=== PATIENT | male | born 1935 | race Caucasian/White ===

== ENCOUNTER 2016-07-10 11:18 | Inpatient (IN) | payer MEDICARE, BC ==
--- NOTE | 2016-07-10 11:55 | ED ---
General Adult HPI - General Chief complaint: Nausea/Vomiting/Diarrhea Stated complaint: fever Time Seen by Provider: 07/10/16 11:41 Source: patient Mode of arrival: ambulatory Limitations: no limitations - History of Present Illness Initial comments: 80-year-old male with history of cirrhosis presenting for abdominal pain. Patient states that he had subjective fevers and chills all night. He also had some abdominal pain that time. He states the abdominal pain has improved somewhat and he is feeling somewhat better however he has had worsening abdominal distention with what he believes is fluid over the past few days. He does state that he had a history of liver stones last year at which time he had a stent placed. He states the stent is still in place but he is starting to have symptoms similar to what he had when he had a liver stones in the past. He is also complaining of some urinary difficulty. He also feels some mild shortness of breath, especially when he gets up and walks around. He denies any chest pain. - Related Data Home Medications Medication Instructions Recorded Confirmed Clopidogrel [Plavix] 75 mg PO DAILY 05/07/14 07/10/16 sitaGLIPtin PHOSPHATE [Januvia] 100 mg PO DAILY 05/07/14 07/10/16 Ferrous Sulfate [Iron (65 MG 325 mg PO BID 04/02/15 07/10/16 Elemental)] Multivitamins, Thera [Multivitamin] 1 tab PO DAILY 11/05/15 07/10/16 metFORMIN HCL [Metformin HCl ER] 500 mg PO BID 11/05/15 07/10/16 Aspirin EC [Ecotrin Low Dose] 81 mg PO DAILY 12/29/15 07/10/16 Furosemide 40 mg PO BID 03/19/16 07/10/16 Isosorbide Mononitrate ER [Imdur] 60 mg PO DAILY 07/10/16 07/10/16 Omeprazole [PriLOSEC] 20 mg PO DAILY 07/10/16 07/10/16 Potassium Chloride ER [K-Dur 10] 10 meq PO BID 07/10/16 07/10/16 Previous Rx's Medication Instructions Recorded Nitroglycerin Sl Tabs [Nitrostat] 0.4 mg SUBLINGUAL Q5M PRN #25 tab 03/23/16 Allergies Allergy/AdvReac Type Severity Reaction Status Date / Time ursodiol Allergy Unknown Verified 07/10/16 12:25 spironolactone AdvReac INCREASED Verified 07/10/16 12:25 [From Aldactone] ANGINA PAIN Review of Systems ROS Statement: Those systems with pertinent positive or pertinent negative responses have been documented in the HPI. Constitutional: Positive subjective fevers and chills. No change in appetite. No unexpected weight loss. Eyes: No visual changes. No eye pain. No sensitivity to light. HENT: No sinus pressure. No ear pain. No hearing changes. No epistaxis. No sore throat. Respiratory: No cough. Positive SOB. No wheezing. Cardiovascular: No chest pain. No palpitations. Positive lower extremity edema. Abdomen: Positive abdominal pain. Positive nausea. No vomiting. No diarrhea. Positive abdominal distention. Genitourinary: No dysuria. No hematuria. No difficulty urinating. No flank pain. Musculoskeletal: No injury. No back pain. No myalgias. Skin: No rash. No lesions. No lacerations. Neuro: No gross strength deficits. No LOC. No seizures. No headache. Psych: No confusion. No memory changes. No anxiety/depression. ROS Other: All systems not noted in ROS Statement are negative. 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, ascites, GIB- rectal bleed (pt vague as to cause or what was done) skin cancer, lower extremity edema, cardiac murmur, colon polyps liver stones Last Myocardial Infarction Date:: not sure History of Any Multi-Drug Resistant Organisms: None Reported Past Surgical History: Cholecystectomy, Coronary Bypass/CABG, Heart Catheterization Additional Past Surgical History / Comment(s): CHRIS, heart cath 1999,heart cath 04-16-15 tx medically, katelynn corneal transplants, rt carotic endarterectomy, skin lesion, removed skin ca(forehead and rt forearm), temporal artery bx-neg, Biliarty stones with ERCP. EGD/colonoscopy 05/2014 Past Anesthesia/Blood Transfusion Reactions: No Reported Reaction Additional Past Anesthesia/Blood Transfusion Reaction / Comment(s): per old hx transfusion 1999-no reaction Past Psychological History: No Psychological Hx Reported Additional Psychological History / Comment(s): but has a significant other for many years. Reformed tobacco and alcohol user. experience the [place] where he was through the [place] and [facility] no illnesses while he was in the service. No travel since then. No animal exposures. No injection drug use Smoking Status: Former smoker Past Alcohol Use History: None Reported Additional Past Alcohol Use History / Comment(s): quit smoking 1985, quit drinking 2007, smoked up to 4 PPD and for a 25 Past Drug Use History: None Reported - Past Family History Father Family Medical History: Myocardial Infarction (RI) Mother Family Medical History: Myocardial Infarction (RI) General Exam - General Exam Comments Initial Comments: General: Awake and Alert. No acute distress. Does not appear acutely ill. Eyes: NERIS, EOM intact. No nystagmus. Mild scleral icterus. HENT: Atraumatic, normocephalic. Mucous membranes moist. Trachea midline. Neck: The neck is supple, there is no tenderness or JVD. Cardiovascular: Regular rate and rhythm. No murmur, rub, or gallop is appreciated. Distal pulses intact. Respiratory: Lungs are clear to auscultation bilaterally. No wheezes, rales, rhonchi. No respiratory distress. Gastrointestinal: Soft, with mild diffuse tenderness. No rebound or guarding. Distended with fluid wave concerning for ascites. No CVA tenderness. Musculoskeletal: No tenderness. Normal ROM. No gross deformity. No strength deficits. Neurological: A&Ox3. CN II-XII grossly intact, There are no obvious motor or sensory deficits. Coordination appears grossly intact. Speech is normal. Skin: Skin is warm and dry and no rashes or lesions are noted. There is jaundice present. Psychiatric: Cooperative, appropriate mood & affect, normal judgment. Limitations: no limitations Course Vital Signs 07/10/16 07/10/16 07/10/16 11:20 14:20 15:10 Temperature 97.1 F L 98.0 F Pulse Rate 74 72 72 Pulse Rate [ Pulse Oximetery ] Respiratory 18 15 15 Rate Blood Pressure 124/60 100/52 98/54 Blood Pressure [Left Arm] O2 Sat by Pulse 100 95 98 Oximetry 07/10/16 16:09 Temperature 97.8 F Pulse Rate Pulse Rate [ 72 Pulse Oximetery ] Respiratory 18 Rate Blood Pressure Blood Pressure 129/60 [Left Arm] O2 Sat by Pulse 99 Oximetry EKG Findings - EKG Comments: EKG Findings:: 14:15. Normal sinus rhythm. Rate 73. ND 184. QRS 82. QT/QTc 398/438. Normal axis. Nonspecific ST and T-wave changes. Abnormal ECG. Similar prior EKG 03/19/16. Medical Decision Making - Medical Decision Making 80-year-old male with history of cirrhosis and prior biliary obstruction presenting for abdominal pain. Patient does not appear to be septic at this time. There is lower suspicion of SBP, will defer antibiotic coverage at this time. No significant abdominal tenderness or evidence of peritonitis. Lab work showing mild drop in hemoglobin from recent value per states it was 10.4 2 weeks ago. Platelets low consistent with thrombocytopenia from end- stage liver disease. LFTs elevated concerning for biliary obstructive process. Lactate negative. BNP significantly elevated. Chest x-ray with no acute process. Ultrasound does show stent in place although there is CBD dilation around this. Updated patient and on results and imaging. Discussed plan for admission. They're agreeable to this. Called and spoke with Dr. Fontaine, he is agreeable with plan for admission. Requests consultation to Dr. Daiz, GI. He also requests consult IR for paracentesis. I did call and discuss with Dr. Diamond covering for Dr. Diaz and they state that they can manage this patient here at [facility]. Patient will be admitted. - Lab Data Result diagrams: 07/10/16 12:42 07/10/16 12:42 Lab Results 07/10/16 07/10/16 07/10/16 Range/Units 12:42 12:42 12:42 WBC 4.8 (3.8-10.6) k/uL RBC 2.37 L (4.30-5.90) m/uL Hgb 9.2 L (13.0-17.5) gm/dL Hct 26.9 L (39.0-53.0) % MCV 113.4 H (80.0-100.0) fL MCH 38.7 H (25.0-35.0) pg MCHC 34.1 (31.0-37.0) g/dL RDW 17.0 H (11.5-15.5) % Plt Count 45 L* (150-450) k/uL Neutrophils % 78 % Lymphocytes % 14 % Monocytes % 6 % Eosinophils % 0 % Basophils % 0 % Neutrophils # 3.7 (1.3-7.7) k/uL Lymphocytes # 0.6 L (1.0-4.8) k/uL Monocytes # 0.3 (0-1.0) k/uL Eosinophils # 0.0 (0-0.7) k/uL Basophils # 0.0 (0-0.2) k/uL Manual Slide Review Performed Anisocytosis Slight Macrocytosis Marked PT (9.0-12.0) sec INR (<1.1) Sodium 134 L (137-145) mmol/L Potassium 4.2 (3.5-5.1) mmol/L Chloride 103 (98-107) mmol/L Carbon Dioxide 24 (22-30) mmol/L Anion Gap 7 mmol/L BUN 31 H (9-20) mg/dL Creatinine 1.70 H (0.66-1.25) mg/dL Est GFR (MDRD) Af Amer 47 (>60 ml/min/1.73 sqM) Est GFR (MDRD) Non-Af 39 (>60 ml/min/1.73 sqM) Glucose 144 H (74-99) mg/dL Plasma Lactic Acid Chetan 1.8 (0.7-2.0) mmol/L Calcium 8.3 L (8.4-10.2) mg/dL Magnesium 1.8 (1.6-2.3) mg/dL Total Bilirubin 7.1 H (0.2-1.3) mg/dL AST 107 H (17-59) U/L ALT 52 (21-72) U/L Alkaline Phosphatase 206 H (38-126) U/L NT-Pro-B Natriuret Pep pg/mL Total Protein 6.2 L (6.3-8.2) g/dL Albumin 2.6 L (3.5-5.0) g/dL Lipase 66 (23-300) U/L 07/10/16 07/10/16 Range/Units 12:42 12:42 WBC (3.8-10.6) k/uL RBC (4.30-5.90) m/uL Hgb (13.0-17.5) gm/dL Hct (39.0-53.0) % MCV (80.0-100.0) fL MCH (25.0-35.0) pg MCHC (31.0-37.0) g/dL RDW (11.5-15.5) % Plt Count (150-450) k/uL Neutrophils % % Lymphocytes % % Monocytes % % Eosinophils % % Basophils % % Neutrophils # (1.3-7.7) k/uL Lymphocytes # (1.0-4.8) k/uL Monocytes # (0-1.0) k/uL Eosinophils # (0-0.7) k/uL Basophils # (0-0.2) k/uL Manual Slide Review Anisocytosis Macrocytosis PT 12.7 H (9.0-12.0) sec INR 1.3 (<1.1) Sodium (137-145) mmol/L Potassium (3.5-5.1) mmol/L Chloride (98-107) mmol/L Carbon Dioxide (22-30) mmol/L Anion Gap mmol/L BUN (9-20) mg/dL Creatinine (0.66-1.25) mg/dL Est GFR (MDRD) Af Amer (>60 ml/min/1.73 sqM) Est GFR (MDRD) Non-Af (>60 ml/min/1.73 sqM) Glucose (74-99) mg/dL Plasma Lactic Acid Chetan (0.7-2.0) mmol/L Calcium (8.4-10.2) mg/dL Magnesium (1.6-2.3) mg/dL Total Bilirubin (0.2-1.3) mg/dL AST (17-59) U/L ALT (21-72) U/L Alkaline Phosphatase (38-126) U/L NT-Pro-B Natriuret Pep 9760 pg/mL Total Protein (6.3-8.2) g/dL Albumin (3.5-5.0) g/dL Lipase (23-300) U/L - EKG Data -: EKG Interpreted by [facility] EKG shows normal: sinus rhythm Rate: normal When compared to previous EKG there are: no significant change - Radiology Data Radiology results: report reviewed, image reviewed Disposition Clinical Impression: Cirrhosis, Abdominal pain, Biliary obstruction, Ascites, Fluid overload, CKD ( chronic kidney disease), Anemia, Thrombocytopenia Disposition: ADMITTED IP TO THIS HOSP Condition: Stable Decision to Admit Reason: Admit from EC
--- NOTE | 2016-07-10 12:11 | XR ---
EXAMINATION TYPE: XR chest 2V DATE OF EXAM: 07/10/2016 12:06 PM COMPARISON: 03/19/2016 HISTORY: Shortness of breath FINDINGS: Bilateral pleural-based plaques are noted. Nodular densities involving the lungs appear stable. Heart is enlarged and postoperative change noted. Underlying COPD noted. Degenerative change of the spine noted. IMPRESSION: 1. No acute process. Stable nodular densities and pleural-based plaques correlate for asbestos relate d disease. 2. COPD
[2016-07-10 13:06] LABS: Calcium 8.3 mg/dL (8.4-10.2); Magnesium 1.8 mg/dL (1.6-2.3); Potassium 4.2 mmol/L (3.5-5.1); Total Bilirubin 7.1 mg/dL (0.2-1.3); Total Protein 6.2 g/dL (6.3-8.2)
[2016-07-10 13:07] LABS: INR 1.3 (<1.1); Prothrombin Time 12.7 sec (9.0-12.0)
[2016-07-10 13:21] LABS: Anisocytosis Slight; Basophils % (A) 0 %; CH 38.7; CHCM 34.2; Eosinophils % (A) 0 %; HCT 26.9 % (39.0-53.0); HDW 2.84; HGB 9.2 gm/dL (13.0-17.5); Large Platelets Flag Marked; Luc # (Auto) 0.12; Luc % (Auto) 3; Lymphocytes # (A) 0.6 k/uL (1.0-4.8); Lymphocytes % (A) 14 %; MCH 38.7 pg (25.0-35.0); MCHC 34.1 g/dL (31.0-37.0); MCV 113.4 fL (80.0-100.0); Macrocytosis Marked; Mean Platelet Volume 11.9; Monocytes # (A) 0.3 k/uL (0-1.0); Monocytes % (A) 6 %; Neutrophils # (A) 3.7 k/uL (1.3-7.7); Neutrophils % (A) 78 %; RBC 2.37 m/uL (4.30-5.90); WBC 4.8 k/uL (3.8-10.6); WBC (Perox) 5.22
[2016-07-10 13:29] LABS: Manual Review Performed
--- NOTE | 2016-07-10 13:51 | US ---
EXAMINATION TYPE: US abdomen limited DATE OF EXAM: 07/10/2016 1:40 PM COMPARISON: 12/29/2015 CLINICAL HISTORY: cirrhosis ascites. h/o stenting due to stones EXAM MEASUREMENTS: Liver Length: 14.5cm cm Gallbladder Wall: N/A CBD: 1.3 m Right Kidney: 10.2 x 4.9 x 4.7cm Findings: Pancreas: Limited by bowel gas. Liver: lobular contour and heterogeneous texture with multiple shadowing area seen, some maybe relat ed to air within the biliary tree and pneumobilia.. Gallbladder: Surgically absent CBD: stent seen within duct and duct appears dilated Right Kidney: wnl IMPRESSION: 1. Findings Suggest cirrhosis with diffuse heterogeneous texture to the liver likely in the basis of chronic hepatocellular disease. Shadowing from the liver likely related to pneumobilia. 2. Small amount of ascites.
[2016-07-10] MEDS ORDERED: NALOXONE 0.4 MG/ML 1 ML VIAL IV PRN (14:16)
[2016-07-10] MEDS ORDERED: MORPHINE SULFATE 4 MG/ML SYRINGE IV PRN (14:16)
[2016-07-10] MEDS ORDERED: ONDANSETRON 4 MG/2 ML VIAL IVP PRN (14:16)
[2016-07-10 16:10] VITALS: BMI 26.5
[2016-07-10 16:50] LABS: Glucose,Whole Blood 99 mg/dL (75-99)
[2016-07-10 16:53] LABS: Appearance,Urine Clear (Clear); Bilirubin,Urine 1+ (Negative); Glucose,Urine (UA) Negative (Negative); Ketones,Urine Negative (Negative); Leukocyte Esterase,Urine Negative (Negative); Nitrite,Urine Negative (Negative); Protein,Urine Negative (Negative); UA Billing (MACRO vs. MICRO) CHEM; Urobilinogen,Urine <2.0 mg/dL (<2.0)
[2016-07-10] MEDS: LACTULOSE 20 GM/30 ML CUP PO SCH (17:36)
[2016-07-10] MEDS ORDERED: NITROGLYCERIN SL TABS 0.4 MG TAB SUBLINGUAL PRN (18:52)
--- NOTE | 2016-07-10 19:54 | HP ---
DATE OF ADMISSION: 07/10/2016 PRESENTING COMPLAINT: Chills. HISTORY OF PRESENTING COMPLAINT: This is a pleasant 80-year-old patient with rather extensive medical history. Patient's chronic stable medical conditions include coronary artery disease, alcohol-induced cirrhosis, congestive heart failure; ejection fraction 40%, COPD, asbestos lung disease, severe secondary pulmonary hypertension, duodenal telangiectasia. Patient presented with having chills and came into the ER earlier today and also had some abdominal pain in the right upper quadrant epigastric area for about 24 hours. Abdomen is slightly more distended. Looks like patient also has a biliary stent. Patient's appetite is fair, tired. REVIEW OF SYSTEMS: CONSTITUTIONAL: Tired. HEENT: None. RESPIRATORY: None. CARDIOVASCULAR: None. GASTROINTESTINAL: Some abdominal distention and as above. GENITOURINARY: None. MUSCULOSKELETAL: None. DERMATOLOGICAL: None. HEMATOLOGICAL: None. PSYCHIATRY: None. NEUROLOGICAL: None. Past history: Cirrhosis, alcohol-induced, coronary artery bypass in 1999 for coronary artery disease, diabetes mellitus type 2, previous alcoholism. Congestive heart failure; ejection fraction 40%, COPD, hypercholesterolemia, pancytopenia, moderate mitral stenosis, tricuspid regurgitation secondary to pulmonary hypertension, skin cancer and colon polyps. PAST SURGICAL HISTORY: Coronary artery bypass, bilateral corneal transplant, right carotid endarterectomy, skin lesion removed, ERCP done for biliary stone removal. SOCIAL HISTORY: The patient is a . The patient stopped drinking in 2007. Patient smoked about 4 packs a day for 25 years and stopped in 1985. FAMILY HISTORY: Myocardial infarction. HOME MEDICATIONS: 1. Januvia 100 mg a day. 2. Metformin extended release 500 mg b.i.d. 3. Potassium 10 mEq b.i.d. 4. Prilosec 20 mg daily. 5. Nitrostat 0.4 sublingual q.5 p.r.n. 6. Multivitamin 1 tablet p.o. daily. 7. Imdur ER 60 mg daily. 8. Lasix 40 mg p.o. b.i.d. 9. Plavix 75 mg p.o. daily. 10. Aspirin 81 mg p.o. daily. ALLERGIES: URSODIOL, ALDACTONE. On examination, temperature 97.1, pulse 74, respiration 18, blood pressure 124/60, pulse 100% on room air. GENERAL APPEARANCE: Average build, lying in bed, tired appearing. EYES: Pupils equal. Conjunctivae pale. HEENT: Oral cavity normal. NECK: JVD not raised. Mass not palpable. RESPIRATORY: Effort normal. LUNGS: Slightly decreased breath sounds. CARDIOVASCULAR: First and second sounds. Minimal edema. ABDOMEN: Distended, soft. Some dullness to percussion in the flanks. Abdomen is not tense. No right upper quadrant tenderness. LYMPHATICS: No lymph node palpable in the neck or axillae. PSYCHIATRY: Alert and oriented x3. Mood and affect normal. NEUROLOGICAL: Pupils equal. Cranial nerves grossly intact. Power and sensation grossly intact. INVESTIGATIONS: White count 4.8, hemoglobin 9.2, platelets 45. Potassium 4.2. BUN 31, creatinine 1.70, it was 34 and 1.30 on 03/22/16. Pro time 12.7, bilirubin 7.1, AST 107, proBNP 9760. Lipase 66. Abdominal ultrasound showing some cirrhosis, some pneumobilia, small amount of ascites. ASSESSMENT: 1. Patient may have had a bout of possibly self-limiting cholangitis given chills, rigors at home. Patient's bilirubin is up. There is amount of pneumobilia on the ultrasound. 2. Coronary artery disease with prior history of coronary artery bypass in 1999. 3. Alcohol-induced cirrhosis chronic. 4. Chronic congestive heart failure from systolic dysfunction, ejection fraction 40% from nonischemic cardiomyopathy. 5. Chronic obstructive pulmonary disease in an ex-smoker. 6. Asbestosis lung disease, chronic. 7. Severe secondary pulmonary hypertension from chronic obstructive pulmonary disease. 8. Chronic kidney disease, stage III from hypertensive nephrosclerosis. 9. Duodenal telangiectasia, chronic. PLAN: Patient's blood culture was sent off. Patient does not have much fluid to be tapped. We will empirically put the patient on ceftriaxone for now. Home medications will be resumed. Accu-Cheks will be followed. Patient is maintaining reasonable blood pressure ( ). Will get a GI consult. Care was discussed with the patient.
[2016-07-10 20:08] LABS: Glucose,Whole Blood 167 mg/dL (75-99)
[2016-07-10] MEDS: POTASSIUM CHLORIDE ER 10 MEQ TAB.ER.PRT PO SCH (20:55)
[2016-07-10] MEDS: metFORMIN 500 MG TAB PO SCH (20:55)
[2016-07-10] MEDS: FUROSEMIDE 40 MG TAB PO SCH (20:55)
[2016-07-10] MEDS: ASPIRIN 81 MG CHEW PO SCH (20:55)
[2016-07-10 21:48] LABS: Hemoglobin A1C 5.4 % (4.2-6.1)
[2016-07-11] MEDS: LACTULOSE 20 GM/30 ML CUP PO SCH ×5 (00:04→23:46)
[2016-07-11] MEDS ORDERED: PANTOPRAZOLE 40 MG TABLET PO SCH (07:30)
[2016-07-11 07:44] LABS: Glucose,Whole Blood 124 mg/dL (75-99)
[2016-07-11] MEDS ORDERED: PANTOPRAZOLE 40 MG/10 ML VIAL IV SCH (09:00)
[2016-07-11] MEDS: INSULIN LISPRO (humaLOG) 300 UNIT/3 ML VIAL SQ SCH ×3 (09:14→17:34)
[2016-07-11] MEDS: metFORMIN 500 MG TAB PO SCH ×2 (09:15→17:28)
[2016-07-11] MEDS: ASPIRIN 81 MG CHEW PO SCH (09:16)
[2016-07-11] MEDS: LINAGLIPTIN 5 MG TABLET PO SCH (09:16)
[2016-07-11] MEDS: POTASSIUM CHLORIDE ER 10 MEQ TAB.ER.PRT PO SCH ×2 (09:16→21:49)
[2016-07-11] MEDS: CLOPIDOGREL 75 MG TAB PO SCH (09:16)
[2016-07-11] MEDS: FUROSEMIDE 40 MG TAB PO SCH ×2 (09:16→21:49)
[2016-07-11] MEDS: ISOSORBIDE MONONITRATE ER 60 MG TAB.ER.24H PO SCH (09:17)
[2016-07-11 09:54] LABS: Anisocytosis Slight; Basophils % (A) 0 %; CH 38.7; CHCM 33.3; Eosinophils % (A) 0 %; HCT 32.4 % (39.0-53.0); HDW 2.74; HGB 10.4 gm/dL (13.0-17.5); Large Platelets Flag Marked; Luc # (Auto) 0.09; Luc % (Auto) 2; Lymphocytes # (A) 0.7 k/uL (1.0-4.8); Lymphocytes % (A) 18 %; MCH 37.6 pg (25.0-35.0); MCHC 32.2 g/dL (31.0-37.0); MCV 116.8 fL (80.0-100.0); Macrocytosis Marked; Mean Platelet Volume 12.4; Monocytes # (A) 0.2 k/uL (0-1.0); Monocytes % (A) 5 %; Neutrophils # (A) 2.9 k/uL (1.3-7.7); Neutrophils % (A) 74 %; RBC 2.77 m/uL (4.30-5.90); RDW 17.1 % (11.5-15.5); WBC 3.9 k/uL (3.8-10.6); WBC (Perox) 4.21
[2016-07-11 10:04] LABS: INR 1.1 (<1.1); Prothrombin Time 11.5 sec (9.0-12.0)
[2016-07-11 10:10] LABS: ALT 66 U/L (21-72); AST 128 U/L (17-59); Alkaline Phosphatase 219 U/L (38-126); Amylase <30 U/L (30-110); Anion Gap 11 mmol/L; Blood Urea Nitrogen 33 mg/dL (9-20); Calcium 8.9 mg/dL (8.4-10.2); Carbon Dioxide 24 mmol/L (22-30); Chloride 102 mmol/L (98-107); Glucose 124 mg/dL (74-99); LDH 685 U/L (313-618); Non-African American GFR(MDRD) 37 (>60 ml/min/1.73 sqM); Phosphorous 3.3 mg/dL (2.5-4.5); Potassium 4.6 mmol/L (3.5-5.1); Sodium 137 mmol/L (137-145); Total Bilirubin 7.2 mg/dL (0.2-1.3)
--- NOTE | 2016-07-11 10:33 | CONS ---
DATE OF CONSULTATION: 07/11/2016 REASON FOR CONSULTATION: ( ) abdominal pain. HISTORY OF PRESENT ILLNESS: The patient is an 80-year-old pleasant, white male who was admitted to the hospital because of abdominal pain, abdominal distention, and some fever, chills about 2 days ago. He had some epigastric discomfort and right upper quadrant pain as well as progressively worsening abdominal distention. He became very concerned and came into the emergency room. He has history of underlying cirrhosis of the liver related to alcohol use diagnosed about 5 years ago. In the ER, he was noted to be jaundice and elevated bilirubin to 7 and hence he was admitted to the hospital for possible CBD obstruction. The patient had an ERCP done by Dr. Jones in December 2015 and was noted to have a large CBD stone, which could not be removed endoscopically and hence he had a CBD stent placement. Today, he feels better. He reports no fever, chills, night sweats. He denies any abdominal pain. He just complains of abdominal distention. His past medical history is significant for alcoholic cirrhosis of the liver, congestive heart failure, pancytopenia, mitral stenosis, skin cancer, history of colon polyps. PAST SURGICAL HISTORY: CABG, bilateral corneal transplant, right carotid endarterectomy, ERCP with CBD stone removal and stent placement of December 2015. MEDICATIONS AT HOME: Januvia, metformin, potassium, Plavix, Nitrostat, multivitamin, Imdur, Lasix, Plavix, aspirin. Allergies to go URSODIOL and ALDACTONE. SOCIAL HISTORY: Heavy smoking and alcohol use in the past. He quit drinking 2 years ago. REVIEW OF SYSTEMS: CARDIOPULMONARY: No chest pain or shortness of breath. GENITOURINARY: No dysuria or hematuria. MUSCULOSKELETAL: Unremarkable. SKIN: Unremarkable. ENDOCRINE: Unremarkable. PSYCHIATRY: Unremarkable. NEUROLOGY: Unremarkable. ENT/VISION: Unremarkable. CONSTITUTIONAL: No recent weight loss. No fevers, chills, night sweats. On physical examination, he appears comfortable in no apparent distress. Vital signs are stable. Blood pressure 129/60, pulse is 72, temperature 97.8. HEENT EXAMINATION: Unremarkable. Conjunctivae pink. Sclerae icteric. Oral cavity, no lesions. NECK: No JVD or lymph node enlargement. Chest was clear to auscultation. HEART: Regular rate and rhythm. Abdomen is soft. It was distended, but it was nontender ( ). Liver and spleen were not palpable. Bowel sounds are positive. No organomegaly. EXTREMITIES: No pedal edema. SKIN: No rashes. NEURO: He is alert and oriented times x3. No focal deficits. Labs done at the time of admission to the hospital: WBC 4.8, hemoglobin 9.2, and platelets were 45,000. PT 1.3. BUN 31, creatinine 1.7. T-bili 7.1, AST 107, ALT is 52. Alk phos is 206 IMPRESSION: 1. This is a patient who presented to the hospital with abdominal distention, abdominal pain and some fever, chills for the last 2 days' duration. He has history of alcoholic cirrhosis of the liver with portal hypertension. He also had ERCP done by Dr. Jones in December of 2015 and had a large CBD stone which could not be removed endoscopically and a CBD stent was placed. Now he presents with the above symptoms and possibility of stent occlusion needs to be considered. 2. Alcoholic cirrhosis of the liver and pancytopenia related to portal hypertension and hypersplenism. RECOMMENDATIONS: 1. Will repeat labs today. 2. Hold aspirin and Plavix for now. 3. Will consider proceeding with an ERCP, based on his platelet counts in the next 1 or 2 days. If his platelet counts continue to be less than 60,000, will transfuse platelets prior to the procedure and hopefully this can be performed in the next 1 or 2 days. The plan was discussed with the patient. He is agreeable to it. In the meantime, he will continue on a clear liquid diet and will follow him closely during his hospital stay. Thank you for this consultation.
[2016-07-11 11:40] LABS: Glucose,Whole Blood 118 mg/dL (75-99)
[2016-07-11 13:54] LABS: Large Platelets Present
[2016-07-11 14:37] VITALS: RESP 16
[2016-07-11 16:40] LABS: Glucose,Whole Blood 132 mg/dL (75-99)
[2016-07-11 20:10] LABS: Glucose,Whole Blood 147 mg/dL (75-99)
--- NOTE | 2016-07-11 22:04 | PN ---
DATE OF SERVICE: 07/11/2016 PRESENTING COMPLAINT: Chills. INTERVAL HISTORY: This patient with extensive medical history known to have a common bile duct stone that could be removed by Dr. Jones earlier. Patient is back with fever, chills. Dr. Diamond saw the patient. She is reconsidering going back with ERCP on Wednesday. Currently pain is controlled, lying in bed. Review of systems done for constitutional, cardiovascular, GI, pulmonary; relevant findings as above. Current medications are reviewed. On examination, temperature 97.7, pulse 69, respirations 16, blood pressure 97/55, pulse ox 95% on room air. GENERAL APPEARANCE: Lying in bed, comfortable. EYES: Pupils equal. Conjunctivae normal. NECK: JVD not raised. Mass not palpable. RESPIRATORY: Effort normal. LUNGS: Slightly decreased breath sounds. CARDIOVASCULAR: First and second sounds normal. Edema present. ABDOMEN: Distended, soft. Some dullness to percussion in the flanks. PSYCHIATRY: Alert and oriented x3. Mood and affect normal. INVESTIGATIONS: White count 3.9, hemoglobin 10.4. Potassium 4.6, BUN 33, creatinine 1.78. Blood cultures remain negative. ASSESSMENT: 1. Patient with known common bile duct stone that was unsuccessful on removal on the last endoscopic retrograde cholangiopancreatography, probably the culprit again. Will possibly have a repeat endoscopic retrograde cholangiopancreatography on Wednesday by Dr. Gabriela Diamond. 2. Coronary artery disease with prior history of coronary artery bypass. 3. Alcohol-induced cirrhosis, chronic. 4. Chronic congestive heart failure from systolic dysfunction; ejection fraction 40% from ischemic cardiomyopathy. 5. Chronic obstructive pulmonary disease in an ex-smoker. 6. Asbestos lung disease, chronic. 7. Severe secondary pulmonary hypertension from chronic obstructive pulmonary disease. 8. Chronic kidney disease, stage 3, from hypertensive nephrosclerosis. 9. Duodenal telangiectasia, chronic. PLAN: Keep the patient on clear liquids. Patient put on ceftriaxone. Follow with GI.
[2016-07-12] MEDS: LACTULOSE 20 GM/30 ML CUP PO SCH ×4 (06:01→23:01)
[2016-07-12 07:39] LABS: Glucose,Whole Blood 151 mg/dL (75-99)
[2016-07-12] MEDS: ASPIRIN 81 MG CHEW PO SCH (07:53)
[2016-07-12] MEDS: CLOPIDOGREL 75 MG TAB PO SCH (07:53)
[2016-07-12 07:59] LABS: Calcium 8.1 mg/dL (8.4-10.2); Potassium 4.6 mmol/L (3.5-5.1); Total Bilirubin 6.5 mg/dL (0.2-1.3); Total Protein 6.1 g/dL (6.3-8.2)
[2016-07-12 08:05] LABS: Anisocytosis Slight; Basophils % (A) 0 %; CH 38.6; CHCM 33.2; Eosinophils % (A) 0 %; HDW 2.76; Large Platelets Flag Marked; Luc # (Auto) 0.19; Luc % (Auto) 3; Lymphocytes # (A) 0.8 k/uL (1.0-4.8); Lymphocytes % (A) 13 %; MCHC 33.4 g/dL (31.0-37.0); MCV 116.7 fL (80.0-100.0); Macrocytosis Marked; Mean Platelet Volume 12.7; Monocytes # (A) 0.3 k/uL (0-1.0); Monocytes % (A) 5 %; Neutrophils # (A) 4.9 k/uL (1.3-7.7); Neutrophils % (A) 78 %; RBC 2.57 m/uL (4.30-5.90); WBC 6.3 k/uL (3.8-10.6); WBC (Perox) 6.61
[2016-07-12] MEDS: INSULIN LISPRO (humaLOG) 300 UNIT/3 ML VIAL SQ SCH ×3 (08:29→17:38)
[2016-07-12] MEDS: FUROSEMIDE 40 MG TAB PO SCH ×2 (08:30→21:27)
[2016-07-12] MEDS: POTASSIUM CHLORIDE ER 10 MEQ TAB.ER.PRT PO SCH ×2 (08:30→21:27)
[2016-07-12] MEDS: metFORMIN 500 MG TAB PO SCH ×2 (08:30→17:38)
[2016-07-12] MEDS: PANTOPRAZOLE 40 MG TABLET PO SCH (08:30)
[2016-07-12] MEDS: ISOSORBIDE MONONITRATE ER 60 MG TAB.ER.24H PO SCH (08:31)
[2016-07-12] MEDS: LINAGLIPTIN 5 MG TABLET PO SCH (08:31)
--- NOTE | 2016-07-12 11:03 | PN ---
DATE OF SERVICE: 07/11/2016 REQUESTING PHYSICIAN: Dr. Murry Patient is an 80-year-old pleasant white male admitted to the hospital with abdominal pain, fever, chills for the last few days duration. He has history of a CBD stone, for which he underwent ERCP with the by Dr. Jones in December 2015 with CBD stent placement as the stone could not be extracted. At the time of admission was noted to have jaundice with T-bili 7.9. This morning the patient states that he is feeling much better. He denies any further episodes of abdominal pain or abdominal distention. He reports no nausea or vomiting. Continues to be on a clear liquid diet, tolerating well. On physical examination, he appears comfortable in no apparent distress. Vital signs are stable. Blood pressure is 152/86, pulse 82 per minute and afebrile. HEENT: Unremarkable. Conjunctivae pink. Sclerae anicteric. Oral cavity, no lesions. NECK: No JVD or lymph node enlargement. ABDOMEN: Soft. It was nontender, nondistended. EXTREMITIES: No pedal edema. SKIN: No rashes. NEURO: He is alert and oriented x3. No focal deficits. Labs done today WBC 6.3, hemoglobin 10, platelets 63,000. T-bili is down to 6.5. AST is 100. ALT 263. Alkaline phosphatase 184. BUN 44, creatinine 1.83. IMPRESSION: 1. Choledocholithiasis, status post ERCP with common bile duct stent placement by Dr. Jones in December in 2016 as a CBD stone could not be extracted. The patient now presents with fever, chills and elevated total bilirubin suspicious for stent occlusion. Clinically, no evidence of ascending cholangitis. 2. 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 3. Mild thrombocytopenia. Platelet count 63,000 today. RECOMMENDATIONS: 1. Advance to a soft diet. 2. N.p.o. after midnight. 3. Will proceed with an ERCP tomorrow since the platelet count is improving. I discussed with the patient the risks, benefits and complications and he is agreeable to it. Thank you for this consultation.
[2016-07-12 11:25] LABS: Large Platelets Present; Manual Review Performed
[2016-07-12 12:26] LABS: Glucose,Whole Blood 121 mg/dL (75-99)
[2016-07-12 16:59] LABS: Glucose,Whole Blood 123 mg/dL (75-99)
[2016-07-12 20:25] LABS: Glucose,Whole Blood 116 mg/dL (75-99)
[2016-07-13] MEDS: LACTULOSE 20 GM/30 ML CUP PO SCH ×4 (04:38→23:12)
[2016-07-13 07:45] LABS: Glucose,Whole Blood 100 mg/dL (75-99)
[2016-07-13] MEDS: INSULIN LISPRO (humaLOG) 300 UNIT/3 ML VIAL SQ SCH ×3 (08:44→17:11)
[2016-07-13] MEDS: PANTOPRAZOLE 40 MG TABLET PO SCH (08:46)
[2016-07-13] MEDS: metFORMIN 500 MG TAB PO SCH ×2 (08:46→17:12)
[2016-07-13] MEDS: LINAGLIPTIN 5 MG TABLET PO SCH (08:47)
[2016-07-13] MEDS: POTASSIUM CHLORIDE ER 10 MEQ TAB.ER.PRT PO SCH ×2 (08:47→20:40)
[2016-07-13] MEDS: ISOSORBIDE MONONITRATE ER 60 MG TAB.ER.24H PO SCH (08:47)
[2016-07-13] MEDS: FUROSEMIDE 40 MG TAB PO SCH ×2 (08:47→20:40)
[2016-07-13 09:02] LABS: INR 1.2 (<1.1); Prothrombin Time 11.8 sec (9.0-12.0)
[2016-07-13 09:16] LABS: Anisocytosis Slight; CH 38.6; CHCM 33.2; HCT 30.3 % (39.0-53.0); HDW 2.78; HGB 10.2 gm/dL (13.0-17.5); Large Platelets Flag Marked; MCH 39.2 pg (25.0-35.0); MCHC 33.5 g/dL (31.0-37.0); MCV 116.8 fL (80.0-100.0); Macrocytosis Marked; Mean Platelet Volume 11.6; RDW 16.8 % (11.5-15.5); WBC 5.4 k/uL (3.8-10.6)
[2016-07-13] MEDS ORDERED: LEVOFLOXACIN 500MG-D5W PMX 500 MG in DEXTROSE/WATER 1 100ML.BAG IVPB ONE (10:00)
[2016-07-13 10:58] LABS: Add Differential Manual Differential
[2016-07-13 11:37] LABS: Manual Review Performed; Nucleated Red Blood Cells 0 /100 WBC (0-0); Total Cells Counted 100
[2016-07-13] MEDS ORDERED: IV FLUID CONTINUATION 1,000 ML IV ONE (11:52)
[2016-07-13] MEDS ORDERED: MIDAZOLAM 2 MG/2 ML VIAL ONE (11:54)
[2016-07-13] MEDS ORDERED: KETAMINE 10 MG/ML 20 ML VIAL ONE (11:54)
[2016-07-13] MEDS ORDERED: PROPOFOL 10 MG/ML 20 ML VIAL IV ONE (11:54)
[2016-07-13] MEDS ORDERED: GLUCAGON 1 MG/ML VIAL ONE (11:54)
[2016-07-13] MEDS ORDERED: GLYCOPYRROLATE 0.2 MG/ML 2 ML VIAL ONE (11:54)
--- NOTE | 2016-07-13 11:59 | PN ---
DATE OF SERVICE: 07/12/2016 PRESENTING COMPLAINT: Abdominal pain. INTERVAL HISTORY: This is a patient with previous common bile duct stone that could not be removed by Dr. Jones on the previous setting. The patient back with fever, chills, due to go back to feels better, due to in for ERCP tomorrow by Dr. Diamond. Review of systems done for constitutional, cardiovascular, GI, pulmonary; relevant findings as above. Current medications are reviewed and include ceftriaxone. On examination, temperature 97.8, pulse 77, respiratory rate 16, blood pressure 116/58, pulse ox 95% on room air. GENERAL APPEARANCE: Lying in bed, comfortable. EYES: Pupils equal. Conjunctivae normal. NECK: JVD not raised. Mass not palpable. RESPIRATORY: Effort normal. Lungs are clear. CARDIOVASCULAR: First and second sounds normal. No edema. ABDOMEN: Distended, soft, some tenderness in the upper side. PSYCHIATRY: Alert and oriented times three. Mood and affect normal. INVESTIGATIONS: White count 6.3, hemoglobin 10, potassium 4.6, BUN 44, creatinine 1.80, platelets 63. ASSESSMENT: 1. A patient with a known history of common bile duct stone with unsuccessful attempt previously by Dr. Jones. ( ) repeat ( ) tomorrow. 2. Coronary artery disease with prior history of coronary artery bypass. 3. Alcohol-induced cirrhosis, chronic. 4. Chronic congestive heart failure from systolic dysfunction; ejection fraction 40%, ischemic cardiomyopathy. 5. Chronic obstructive pulmonary disease in an ex-smoker. 6. ( ) lung disease, chronic. 7. Severe secondary pulmonary hypertension from chronic obstructive pulmonary disease. 8. Chronic kidney disease, stage III, from hypertensive nephrosclerosis. 9. ( ) telangiectasia, chronic. PLAN: Care was discussed with the patient. Continue current medication and treatment plan. Await ERCP tomorrow. NPO after midnight.
[2016-07-13] MEDS ORDERED: IOHEXOL 300 MG/ML 50 ML BOTTLE MISCELLANE ONE (12:06)
--- NOTE | 2016-07-13 12:32 | P.PCN ---
Date of Procedure: 07/13/16 Procedure(s) Performed: Brief history: Patient is a 80 year-old pleasant white male scheduled for an ERCP as part of evaluation of abdominal pain and jaundice last 2 days' duration. He had prior history of CBD stones he underwent an ERCP by Dr. Diaz in December 2015 and was noted to have large CBD stone that could not be removed and had a CBD stent placed. Patient presents to the hospital with fever chills last 2 days' duration and was noted to have been elevated at 7 g/ dL. His and scheduled for an ERCP for CBD stone removal as well as stent removal. Procedure performed: ERCP with stent removal and CBD stone extraction Preoperative diagnoses: Abdominal pain, jaundice. History of CBD stones IV sedation per anesthesia: Procedure: After informed consent was obtained from the patient and after the risks benefits and complications including bleeding perforation and pancreatitis explained in detail the patient was brought into the endoscopy unit. The patient was placed in prone position and IV conscious sedation was administered by anesthesia under continuous monitoring. The Olympus side-viewing duodenoscope was then inserted into the mouth and esophagus intubated without any difficulty. The scope was gradually advanced into the stomach and duodenum. The major papilla was identified without any difficulty. There was a previously placed stent identified and this was removed using a snare. Following this there was a wide-open sphincterotomy noted and the CBD was Cannulated with a Taper-tip Catheter and upon Injection of the Dye There Were Multiple Filling Defects Noted in the EBD the Largest One Measuring Approximately 1 Cm in Size. At This Time a 12 Mm Balloon Was Used Which Was Passed into the Proximal CBD and Gently Inflated and Withdrawn. Multiple stones were seen exiting the ampulla along with sludge. At least 5 large stones were extracted and this maneuver was repeated several times until there were no filling defect identified. Occlusion cholangiogram was performed and no other filling defect that identified and hence at this time CBD stent was not replaced. Patient tolerated the procedure well. Pancreatic duct was not cannulated intentionally. Impression: Previously placed CBD stent was removed Dilated common bile duct with multiple filling defects the largest measuring 1 cm in size, status post CBD stone extraction with the balloon catheter as described above. All stones were extracted. Recommendations: The findings of this examination were discussed with the patient as well as his family. His diet will be advanced as tolerated and the patient admitted discharged home today or tomorrow with outpatient follow-up in 2 weeks.
[2016-07-13 13:19] LABS: Glucose,Whole Blood 112 mg/dL (75-99)
[2016-07-13 16:59] LABS: Glucose,Whole Blood 108 mg/dL (75-99)
[2016-07-13 20:28] LABS: Glucose,Whole Blood 99 mg/dL (75-99)
--- NOTE | 2016-07-14 05:13 | PN ---
DATE OF SERVICE: 07/13/2016 PRESENTING COMPLAINT: CBD stone. INTERVAL HISTORY: This is a patient who underwent ERCP/CBD stone extraction and a previous CBD stent was removed. Patient is sitting up in a chair. No abdominal pain. Feels slightly gaseous. Feeling hungry. Review of systems done for constitutional, cardiovascular, GI, pulmonary; relevant findings as above. Current medications are reviewed. On examination, temperature 97, pulse 81, respirations 16, blood pressure 127/63, pulse ox 99% on room air. GENERAL APPEARANCE: Sitting up in a chair, comfortable. EYES: Pupils equal. Conjunctivae normal. NECK: JVD not raised. Mass not palpable. RESPIRATORY: Effort normal. Lungs are clear. CARDIOVASCULAR: First and second sounds normal. No edema. ABDOMEN: Distended, soft, no tenderness. Psych: Alert and oriented x3. Mood and affect normal. INVESTIGATIONS: White count 5.4, hemoglobin 10.2. ASSESSMENT: 1. Common bile duct stone and stent, both removed by ERCP today. 2. Coronary artery disease with prior history of coronary artery bypass. 3. Alcohol-induced cirrhosis, chronic. 4. Chronic congestive heart failure from systolic dysfunction, ejection fraction 40%, ischemic cardiomyopathy. 5. Chronic obstructive pulmonary disease in an ex-smoker. 6. Severe secondary pulmonary hypertension from severe chronic obstructive pulmonary disease. 7. Chronic kidney disease, stage III from hypertensive nephrosclerosis. 8. Asbestos lung disease, chronic. 9. Duodenal telangiectasia, chronic. PLAN: Diet as advanced per GI. Will check CMP in the morning. The patient clinically looks good.
[2016-07-14] MEDS: LACTULOSE 20 GM/30 ML CUP PO SCH ×2 (05:29→12:48)
[2016-07-14 07:29] LABS: Glucose,Whole Blood 94 mg/dL (75-99)
[2016-07-14] MEDS: INSULIN LISPRO (humaLOG) 300 UNIT/3 ML VIAL SQ SCH ×2 (07:38→12:48)
[2016-07-14 07:46] VITALS: BP 121/57; PULSE 72; TEMP 97.6
[2016-07-14] MEDS: metFORMIN 500 MG TAB PO SCH (08:23)
[2016-07-14] MEDS: PANTOPRAZOLE 40 MG TABLET PO SCH (08:23)
--- NOTE | 2016-07-14 08:43 | FL ---
EXAMINATION TYPE: FL ERCP biliary duct only DATE OF EXAM: 07/13/2016 12:37 PM HISTORY: Flouroscopy time 44 seconds of fluoroscopy provided. IMPRESSION: 1. Fluoroscopy time.
[2016-07-14 09:05] LABS: Calcium 8.2 mg/dL (8.4-10.2); Potassium 4.7 mmol/L (3.5-5.1); Total Bilirubin 7.8 mg/dL (0.2-1.3); Total Protein 6.4 g/dL (6.3-8.2)
[2016-07-14] MEDS: ISOSORBIDE MONONITRATE ER 60 MG TAB.ER.24H PO SCH (10:18)
[2016-07-14] MEDS: FUROSEMIDE 40 MG TAB PO SCH (10:18)
[2016-07-14] MEDS: POTASSIUM CHLORIDE ER 10 MEQ TAB.ER.PRT PO SCH (10:19)
--- NOTE | 2016-07-14 10:35 | P.PN ---
Subjective Principal diagnosis: Obstructive jaundice 80-year-old gentleman with a history of recurrent choledocholithiasis admitted with obstructive jaundice status post ERCP yesterday with CBD stent removal, CBD stone extraction with balloon catheter without replacement of CBD stent. Denies abdominal pain. Feels well. Tolerating diet. Total bilirubin 7.8 today. Objective - Vital Signs Vital signs: Vital Signs Temp 97.6 F 07/14/16 07:00 Pulse 72 07/14/16 07:00 Resp 16 07/14/16 07:00 BP 121/57 07/14/16 07:00 Pulse Ox 98 07/14/16 07:00 Intake & Output 07/13/16 07/14/16 07/14/16 18:59 06:59 18:59 Intake Total 300 400 Balance 300 400 Weight 74.5 kg Intake: IV 300 Oral 400 Other: Voiding Method Toilet Toilet # Voids 2 2 - Exam General appearance: The patient is alert, oriented, in no acute distress. Jaundice HET: Head is normocephalic and atraumatic. Pupils are equal and reactive. Sclerae icterus. Oropharynx is clear without lesions. Neck: Supple without lymphadenopathy. Trachea midline. Heart: S1 S2. Regular rate and rhythm. Lungs: No crackles or wheezes are heard. Abdomen: Soft, nontender, nondistended with bowel sounds. No peritoneal signs. No palpable organomegaly or masses. Extremities: Normal skin color and turgor. No cyanosis, rash, ulceration, clubbing, or edema. Radial and pedal pulses are 2/4 bilaterally. Neurological: No focal deficits. Strength and sensation are grossly intact. - Labs CBC & Chem 7: 07/13/16 08:11 07/14/16 07:44 Labs: Abnormal Lab Results - Last 24 Hours (Table) 07/13/16 07/13/16 07/13/16 Range/Units 08:11 13:17 16:51 RBC 2.60 L (4.30-5.90) m/uL Hgb 10.2 L (13.0-17.5) gm/dL Hct 30.3 L (39.0-53.0) % MCV 116.8 H (80.0-100.0) fL MCH 39.2 H (25.0-35.0) pg RDW 16.8 H (11.5-15.5) % Plt Count 68 L (150-450) k/uL Lymphocytes # (Manual) 0.8 L (1.0-4.8) k/uL Sodium (137-145) mmol/L Carbon Dioxide (22-30) mmol/L BUN (9-20) mg/dL Creatinine (0.66-1.25) mg/dL POC Glucose (mg/dL) 112 H 108 H (75-99) mg/dL Calcium (8.4-10.2) mg/dL Total Bilirubin (0.2-1.3) mg/dL AST (17-59) U/L ALT (21-72) U/L Alkaline Phosphatase (38-126) U/L Albumin (3.5-5.0) g/dL 07/14/16 Range/Units 07:44 RBC (4.30-5.90) m/uL Hgb (13.0-17.5) gm/dL Hct (39.0-53.0) % MCV (80.0-100.0) fL MCH (25.0-35.0) pg RDW (11.5-15.5) % Plt Count (150-450) k/uL Lymphocytes # (Manual) (1.0-4.8) k/uL Sodium 135 L (137-145) mmol/L Carbon Dioxide 21 L (22-30) mmol/L BUN 51 H (9-20) mg/dL Creatinine 1.88 H (0.66-1.25) mg/dL POC Glucose (mg/dL) (75-99) mg/dL Calcium 8.2 L (8.4-10.2) mg/dL Total Bilirubin 7.8 H (0.2-1.3) mg/dL AST 115 H (17-59) U/L ALT 76 H (21-72) U/L Alkaline Phosphatase 270 H (38-126) U/L Albumin 2.5 L (3.5-5.0) g/dL Microbiology - Last 24 Hours (Table) 07/10/16 15:42 Blood Culture - Preliminary Blood No Growth after 72 hours Assessment and Plan Plan: Impression: 1. Objective jaundice secondary to choledocholithiasis status post ERCP with balloon stone extraction and removal of CBD stent without replacement. 2. 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 Recommendations: 1. Liver chemistries reviewed this morning agreeable for discharge. Follow up in GI office in 2 weeks. Assessment and plan a care discussed with Dr. Diamond
[2016-07-14] MEDS: LINAGLIPTIN 5 MG TABLET PO SCH (11:49)
[2016-07-14 12:31] LABS: Glucose,Whole Blood 146 mg/dL (75-99)
--- NOTE | 2016-07-15 21:39 | DS ---
DATE OF ADMISSION: 07/10/2016 DATE OF DISCHARGE: 07/14/2016 FINAL DIAGNOSES: 1. Common bile duct stone causing abdominal pain and stent both removed by ERCP. 2. Coronary disease with prior history of coronary artery bypass. 3. Alcohol-induced cirrhosis, chronic. 4. Chronic congestive heart failure from systolic dysfunction; ejection fraction 40% ischemic cardiomyopathy. 5. Chronic obstructive pulmonary disease in an ex-smoker. 6. Severe secondary pulmonary hypertension from severe chronic obstructive pulmonary disease. 7. Chronic kidney disease, stage III from hypertensive nephrosclerosis. 8. Asbestos lung disease, chronic. 9. Duodenal telangiectasia chronic. HOSPITAL COURSE: This patient presented with abdominal pain with prior ( ) by Dr. Jones with ERCP , the CBD stone could not be extracted. On this admission, the patient again had abdominal pain and prior stent and stone were both removed. Post procedure patient is doing well. Care was discussed with the patient and . On exam: ABDOMEN: Soft, nontender. LUNGS: Clear. DISCHARGE MEDICATIONS: 1. Plavix 75 mg a day. 2. Januvia 100 mg p.o. daily. 3. Iron 365 milligrams b.i.d. 4. Multivitamin 1 tablet p.o. daily. 5. Metformin ER 500 mg p.o. b.i.d. 6. Aspirin 81 mg p.o. daily. 7. Lasix 40 mg b.i.d. 8. Nitrostat 0.4 sublingual q.5 p.r.n. 9. Imdur ER 60 mg daily. 10. Prilosec 20 mg p.o. daily. 11. Potassium 10 mEq p.o. b.i.d. 12. Lactulose 30 grams p.o. daily. Follow up with Dr. Murry 07/22/2016, follow with Dr. Gabriela Diamond on 07/29/2016.
== END 2016-07-14 13:43 | disposition home or self-care (01) | DRG 445 ==
LOC: EC 11:18 → 5MS5E 14:20
PROVIDERS: ADMIT Hospitalist; ATTEND Hospitalist
PROC: BF101ZZ Fluoroscopy of Bile Ducts using Low Osmolar Contrast (ICD-10-PCS; 2016-07-13)
PROC: 0FC98ZZ Extirpation of Matter from Common Bile Duct, Via Natural or Artificial Opening Endoscopic (ICD-10-PCS; principal; 2016-07-13 09:15)
PROC: 0FPB8DZ Removal of Intraluminal Device from Hepatobiliary Duct, Via Natural or Artificial Opening Endoscopic (ICD-10-PCS; 2016-07-13 09:15)
DX: K80.51 Calculus of bile duct without cholangitis or cholecystitis with obstruction (principal); K76.6 Portal hypertension; D61.818 Other pancytopenia; E11.22 Type 2 diabetes mellitus with diabetic chronic kidney disease; D69.59 Other secondary thrombocytopenia; N18.3 Chronic kidney disease, stage 3 (moderate); I13.0 Hypertensive heart and chronic kidney disease with heart failure and stage 1 through stage 4 chronic kidney disease, or unspecified chronic kidney disease; I50.22 Chronic systolic (congestive) heart failure; I27.2 Other secondary pulmonary hypertension; J44.9 Chronic obstructive pulmonary disease, unspecified; K70.31 Alcoholic cirrhosis of liver with ascites; Z95.1 Presence of aortocoronary bypass graft; I08.3 Combined rheumatic disorders of mitral, aortic and tricuspid valves; D64.9 Anemia, unspecified; F10.20 Alcohol dependence, uncomplicated; D73.1 Hypersplenism; J61 Pneumoconiosis due to asbestos and other mineral fibers; I25.10 Atherosclerotic heart disease of native coronary artery without angina pectoris; I25.5 Ischemic cardiomyopathy; R53.83 Other fatigue; E78.00 Pure hypercholesterolemia, unspecified; E78.5 Hyperlipidemia, unspecified; M19.90 Unspecified osteoarthritis, unspecified site; R50.9 Fever, unspecified; I25.2 Old myocardial infarction; Z87.891 Personal history of nicotine dependence; Z86.010 Personal history of colon polyps; Z85.828 Personal history of other malignant neoplasm of skin; Z79.82 Long term (current) use of aspirin; Z79.02 Long term (current) use of antithrombotics/antiplatelets; Z82.49 Family history of ischemic heart disease and other diseases of the circulatory system; Z86.79 Personal history of other diseases of the circulatory system; Z88.8 Allergy status to other drugs, medicaments and biological substances; Z79.84 Long term (current) use of oral hypoglycemic drugs; Z79.899 Other long term (current) drug therapy; Z90.49 Acquired absence of other specified parts of digestive tract; Z87.19 Personal history of other diseases of the digestive system; Z96.89 Presence of other specified functional implants; Z94.7 Corneal transplant status
CPT/HCPCS: 36415; 43264; 43275; 71020; 74328; 76705; 80053; 81003; 82150; 83036; 83605; 83615; 83690; 83735; 83880; 84100; 85025; 85610; 87040; 93005; 99285

== ENCOUNTER 2016-08-06 12:07 | Day surgery (SDC) | payer MEDICARE, BC ==
[2016-08-06 12:54] VITALS: RESP 20; TEMP 97.8
[2016-08-06 13:02] LABS: INR 1.2 (<1.1)
[2016-08-06 13:03] LABS: Prothrombin Time 11.7 sec (9.0-12.0)
[2016-08-06 13:32] LABS: Anisocytosis Slight; Basophils % (A) 0 %; CH 38.4; CHCM 32.9; Eosinophils % (A) 1 %; HCT 28.7 % (39.0-53.0); HDW 2.96; HGB 9.5 gm/dL (13.0-17.5); Large Platelets Flag Moderate; Luc # (Auto) 0.08; Luc % (Auto) 3; Lymphocytes # (A) 0.9 k/uL (1.0-4.8); Lymphocytes % (A) 32 %; MCH 38.9 pg (25.0-35.0); MCHC 33.2 g/dL (31.0-37.0); MCV 117.3 fL (80.0-100.0); Macrocytosis Marked; Monocytes # (A) 0.2 k/uL (0-1.0); Monocytes % (A) 9 %; Neutrophils # (A) 1.5 k/uL (1.3-7.7); Neutrophils % (A) 55 %; RBC 2.45 m/uL (4.30-5.90); WBC 2.7 k/uL (3.8-10.6); WBC (Perox) 3.23
[2016-08-06 13:37] LABS: Calcium 8.4 mg/dL (8.4-10.2); Total Bilirubin 3.5 mg/dL (0.2-1.3); Total Protein 7.3 g/dL (6.3-8.2)
[2016-08-06] MEDS: ALBUMIN HUMAN 25% 50 ML in EMPTY BAG 1 BAG IVPB SCH ×4 (14:53→15:34)
[2016-08-06 15:50] VITALS: BP 119/62; PULSE 93
[2016-08-06 20:05] LABS: RBC, Body Fluid 122 /uL
--- NOTE | 2016-08-06 22:04 | US ---
EXAMINATION TYPE: US paracentesis abd w/image DATE OF EXAM: 08/06/2016 4:43 PM COMPARISON: NONE HISTORY: Ascites. PROCEDURE: Maximal barrier technique was utilized. The skin overlying a suitable pocket of fluid was localized with ultrasound and the overlying skin was prepped and draped. Ultrasound was utilized with sterile technique. Lidocaine was used for local anesthesia and a skin quang made with a scalpel. Catheter was advanced under direct ultrasound guidance into a suitable pocket of fluid and approximately 8.1 liter s of serous fluid were removed. Catheter was withdrawn and hemostasis achieved. There is no immedia te complication; the patient is discharged in stable condition. IMPRESSION: STATUS POST ULTRASOUND GUIDED PARACENTESIS FOR PALLIATION OF ASCITES. THIS PROCEDURE WA S PERFORMED BY THE UNDERSIGNED.
[2016-08-07 14:36] LABS: Body Fluid Comment Few Mesothelial
== END 2016-08-06 14:20 | disposition home or self-care (01) ==
LOC: RADPROMAIN 12:07
PROVIDERS: ATTEND Internal Medicine Gastroenterology
DX: K70.31 Alcoholic cirrhosis of liver with ascites (principal); C44.90 Unspecified malignant neoplasm of skin, unspecified
CPT/HCPCS: 88108; 88305; 80053; 89050; 85025; 85610; 82105; 96365; 36415; 49083; P9047; 82042; 84157

== ENCOUNTER → 2016-08-12 | Outpatient (CLI) | payer MEDICARE, BC ==
--- NOTE | 2016-08-12 15:03 | MR ---
MRI liver with and without contrast HISTORY: Alcoholic liver cirrhosis Multiplanar multisequence and postcontrast images obtained through the abdomen following 15 cc MultiH ance IV. Correlation to CT scan dated 27 March 2015. FINDINGS: Patient is post median sternotomy. The heart is enlarged. Abdomen shows abundant ascites. The liver is small and shows nodular contour. Dilated left lobe bilia ry radicals are again noted and are chronic. The spleen is enlarged. There are varices about the dist al esophagus. Patient is post cholecystectomy. There is some heterogeneity and enhancement of the liver on arterial phase. No focal mass evident how ever. Pleural calcifications not as well seen on MRI. IMPRESSION: Findings compatible with patient's history of alcoholic cirrhosis, there is likely portal hypertension with chronic biliary obstruction in the left lobe liver. Large amount of ascites.
== END | disposition home or self-care (01) ==
LOC: RADMRIMAIN 05:54
PROVIDERS: ATTEND Internal Medicine Gastroenterology
DX: R18.8 Other ascites (principal)
CPT/HCPCS: 74183; A9577

== ENCOUNTER 2016-08-24 08:39 | Day surgery (SDC) | payer MEDICARE, BC ==
[2016-08-24 09:06] VITALS: TEMP 97.5
[2016-08-24 09:14] LABS: Large Platelets Flag Slight; Mean Platelet Volume 11.4
[2016-08-24 09:17] LABS: Glucose,Whole Blood 106 mg/dL (75-99)
[2016-08-24 09:18] LABS: INR 1.1 (<1.1); Prothrombin Time 11.5 sec (9.0-12.0)
[2016-08-24] MEDS ORDERED: SODIUM BICARB 4% 5 ML VIAL (0.48 MEQ/ML) MISCELLANE PRN (09:28)
[2016-08-24 10:21] VITALS: RESP 14
[2016-08-24] MEDS: ALBUMIN HUMAN 25% 50 ML in EMPTY BAG 1 BAG IVPB SCH ×4 (10:38→11:10)
[2016-08-24 11:25] VITALS: BP 141/63; PULSE 80
--- NOTE | 2016-08-24 11:54 | US ---
EXAMINATION TYPE: US paracentesis abd w/image DATE OF EXAM: 08/24/2016 11:36 AM CLINICAL HISTORY: Ascites The procedure was discussed with the patient. The risks, complications, benefits, and alternatives we re discussed and any questions were answered. Informed consent was obtained. The patient was placed s upine on the ultrasound table and prepped and draped in the usual sterile fashion. All elements of maximal barrier technique were utilized. Under ultrasound guidance, access into the right lower quadrant was obtained, via the paracentesis catheter system and direct ultrasound guidanc e. Approximately 9 liters of straw-colored fluid was removed. The patient was stable throughout the proc edure and remained stable upon discharge from Department of Radiology. IMPRESSION: Successful therapeutic paracentesis under ultrasound guidance.
== END 2016-08-24 11:37 | disposition home or self-care (01) ==
LOC: RADPROMAIN 08:39
PROVIDERS: ATTEND Internal Medicine Gastroenterology
DX: R18.8 Other ascites (principal)
CPT/HCPCS: 82565; 85049; 85610; 96365; 49083; P9047

== ENCOUNTER 2016-09-01 14:09 | Inpatient (IN) | payer MEDICARE, BC ==
[2016-09-01] MEDS ORDERED: ONDANSETRON 4 MG/2 ML VIAL IVP STA (14:46)
[2016-09-01] MEDS ORDERED: MORPHINE SULFATE 4 MG/ML SYRINGE IVP STA (14:48)
--- NOTE | 2016-09-01 14:51 | ED ---
General Adult HPI - General Chief complaint: Chest Pain Stated complaint: chest/abdominal pain Time Seen by Provider: 09/01/16 14:15 Source: patient, RN notes reviewed Mode of arrival: wheelchair Limitations: no limitations - History of Present Illness Initial comments: This is an 80-year-old male who presents to the emergency department with past medical history significant for alcoholism and liver cirrhosis. Patient also has a history of anemia. Patient comes in today because his abdomen is becoming more and more distended he has had paracentesis 2 and he believes he needs another one. Patient complains of epigastric and right upper quadrant left upper quadrant abdominal discomfort. Patient states it hurts to take a deep breath causes pressing on his abdomen. Patient denies chest pain patient denies any fever chills or cough. Patient denies headache patient denies numbness weakness. Patient states he is always nauseated he finds it very difficult to eat. Patient denies any vomiting however. Patient denies any diarrhea. - Related Data Home Medications Medication Instructions Recorded Confirmed Clopidogrel [Plavix] 75 mg PO DIRECTED 05/07/14 09/01/16 sitaGLIPtin PHOSPHATE [Januvia] 100 mg PO DAILY 05/07/14 09/01/16 Ferrous Sulfate [Iron (65 MG 325 mg PO BID 04/02/15 09/01/16 Elemental)] Multivitamins, Thera [Multivitamin 1 tab PO DAILY 11/05/15 09/01/16 (formulary)] metFORMIN HCL [Metformin HCl ER] 500 mg PO BID 11/05/15 09/01/16 Aspirin EC [Ecotrin Low Dose] 81 mg PO DIRECTED 12/29/15 09/01/16 Furosemide 40 mg PO BID 03/19/16 09/01/16 Isosorbide Mononitrate ER [Imdur] 60 mg PO DAILY 07/10/16 09/01/16 Omeprazole [PriLOSEC] 20 mg PO DAILY 07/10/16 09/01/16 Potassium Chloride ER [K-Dur 10] 10 meq PO BID 07/10/16 09/01/16 Previous Rx's Medication Instructions Recorded Nitroglycerin Sl Tabs [Nitrostat] 0.4 mg SUBLINGUAL Q5M PRN #25 tab 03/23/16 Allergies Allergy/AdvReac Type Severity Reaction Status Date / Time ursodiol Allergy Unknown Verified 09/01/16 14:38 spironolactone AdvReac INCREASED Verified 09/01/16 14:38 [From Aldactone] ANGINA PAIN Review of Systems ROS Statement: Those systems with pertinent positive or pertinent negative responses have been documented in the HPI. ROS Other: All systems not noted in ROS Statement are negative. 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 EGD/colonoscopy 05/2014 Past Anesthesia/Blood Transfusion Reactions: No Reported Reaction Additional Past Anesthesia/Blood Transfusion Reaction / Comment(s): per old hx transfusion 1999-no reaction Past Psychological History: No Psychological Hx Reported Additional Psychological History / Comment(s): but has a significant other for many years. Reformed tobacco and alcohol user. experience the [place] where he was through the [place] no illnesses while he was in the service. No travel since then. No animal exposures. No injection drug use Smoking Status: Former smoker Past Alcohol Use History: None Reported Additional Past Alcohol Use History / Comment(s): quit smoking 1985, quit drinking 2007, smoked up to 4 PPD and for a 25 Past Drug Use History: None Reported - Past Family History Father Family Medical History: Myocardial Infarction ([place]) Additional Family Medical History / Comment(s): Father at the age of 93 yrs. Mother Family Medical History: Myocardial Infarction ([place]) Additional Family Medical History / Comment(s): Mother had a [place] in her 70's. She lived into her 80's. General Exam - General Exam Comments Initial Comments: GENERAL: Patient is well-developed and well-nourished. Patient is nontoxic and well- hydrated and is in mild distress. ENT: Neck is soft and supple. No significant lymphadenopathy is noted. Oropharynx is clear. Moist mucous membranes. Neck has full range of motion without eliciting any pain. EYES: The sclera were anicteric and conjunctiva were pink and moist. Extraocular movements were intact and pupils were equal round and reactive to light. Eyelids were unremarkable. PULMONARY: Unlabored respirations. Good breath sounds bilaterally. No audible rales rhonchi or wheezing was noted. CARDIOVASCULAR: There is a regular rate and rhythm without any murmurs gallops or rubs. ABDOMEN: She has a very distended abdomen consistent with ascites SKIN: Skin is clear with no lesions or rashes and otherwise unremarkable. NEUROLOGIC: Patient is alert and oriented x3. Cranial nerves II through XII are grossly intact. Motor and sensory are also intact. Normal speech, volume and content. Symmetrical smile. MUSCULOSKELETAL: Normal extremities with adequate strength and full range of motion. LYMPHATICS: No significant lymphadenopathy is noted PSYCHIATRIC: Normal psychiatric evaluation. Limitations: no limitations Course Vital Signs 09/01/16 14:12 Temperature 98.4 F Pulse Rate 78 Respiratory 20 Rate Blood Pressure 115/54 O2 Sat by Pulse 97 Oximetry Medical Decision Making - Medical Decision Making EKG shows normal sinus rhythm at 80 bpm KS interval is 176 QRS is 78 QT interval 34 QTC is 442. Patient's EKG shows no significant ST segment elevation. EKG is compared to an old EKG no acute changes are noted Patient's chest x-ray shows no acute normalities. Patient's elevated troponin of 0.14. I spoke with Dr. Fontaine about the elevated troponin he wanted repeat labs done and told Her at this time. Patient has no chest pain at this time. I will write admitting orders cardiology will not be consult at this time Dr. Fontaine will wait for repeat troponins to make that determination. - Lab Data Result diagrams: 09/01/16 14:39 09/01/16 14:39 Lab Results 09/01/16 09/01/16 09/01/16 Range/Units 14:39 14:39 14:39 WBC 5.8 (3.8-10.6) k/uL RBC 2.82 L (4.30-5.90) m/uL Hgb 10.7 L (13.0-17.5) gm/dL Hct 32.3 L (39.0-53.0) % MCV 114.4 H (80.0-100.0) fL MCH 37.9 H (25.0-35.0) pg MCHC 33.1 (31.0-37.0) g/dL RDW 16.5 H (11.5-15.5) % Plt Count 73 L (150-450) k/uL Neutrophils % (Manual) 82.0 % Lymphocytes % (Manual) 10.0 % Monocytes % (Manual) 8.0 % Neutrophils # (Manual) 4.8 (1.3-7.7) k/uL Lymphocytes # (Manual) 0.6 L (1.0-4.8) k/uL Monocytes # (Manual) 0.5 (0-1.0) k/uL Nucleated RBCs 0 (0-0) /100 WBC Large Platelets Present Anisocytosis Slight Macrocytosis Marked PT (9.0-12.0) sec INR (<1.1) APTT (22.0-30.0) sec Sodium 128 L (137-145) mmol/L Potassium 4.7 (3.5-5.1) mmol/L Chloride 99 (98-107) mmol/L Carbon Dioxide 20 L (22-30) mmol/L Anion Gap 9 mmol/L BUN 30 H (9-20) mg/dL Creatinine 1.50 H (0.66-1.25) mg/dL Est GFR (MDRD) Af Amer 54 (>60 ml/min/1.73 sqM) Est GFR (MDRD) Non-Af 45 (>60 ml/min/1.73 sqM) Glucose 192 H (74-99) mg/dL Calcium 8.7 (8.4-10.2) mg/dL Total Bilirubin 7.2 H (0.2-1.3) mg/dL AST 120 H (17-59) U/L ALT 66 (21-72) U/L Alkaline Phosphatase 434 H (38-126) U/L Total Creatine Kinase 33 L (55-170) U/L CK-MB (CK-2) 1.5 (0.0-2.4) ng/mL CK-MB (CK-2) Rel Index 4.5 Troponin I 0.140 H* (0.000-0.034) ng/mL Total Protein 7.4 (6.3-8.2) g/dL Albumin 2.9 L (3.5-5.0) g/dL Amylase 33 (30-110) U/L Lipase 104 (23-300) U/L 09/01/16 Range/Units 14:39 WBC (3.8-10.6) k/uL RBC (4.30-5.90) m/uL Hgb (13.0-17.5) gm/dL Hct (39.0-53.0) % MCV (80.0-100.0) fL MCH (25.0-35.0) pg MCHC (31.0-37.0) g/dL RDW (11.5-15.5) % Plt Count (150-450) k/uL Neutrophils % (Manual) % Lymphocytes % (Manual) % Monocytes % (Manual) % Neutrophils # (Manual) (1.3-7.7) k/uL Lymphocytes # (Manual) (1.0-4.8) k/uL Monocytes # (Manual) (0-1.0) k/uL Nucleated RBCs (0-0) /100 WBC Large Platelets Anisocytosis Macrocytosis PT 12.0 (9.0-12.0) sec INR 1.2 (<1.1) APTT 25.6 (22.0-30.0) sec Sodium (137-145) mmol/L Potassium (3.5-5.1) mmol/L Chloride (98-107) mmol/L Carbon Dioxide (22-30) mmol/L Anion Gap mmol/L BUN (9-20) mg/dL Creatinine (0.66-1.25) mg/dL Est GFR (MDRD) Af Amer (>60 ml/min/1.73 sqM) Est GFR (MDRD) Non-Af (>60 ml/min/1.73 sqM) Glucose (74-99) mg/dL Calcium (8.4-10.2) mg/dL Total Bilirubin (0.2-1.3) mg/dL AST (17-59) U/L ALT (21-72) U/L Alkaline Phosphatase (38-126) U/L Total Creatine Kinase (55-170) U/L CK-MB (CK-2) (0.0-2.4) ng/mL CK-MB (CK-2) Rel Index Troponin I (0.000-0.034) ng/mL Total Protein (6.3-8.2) g/dL Albumin (3.5-5.0) g/dL Amylase (30-110) U/L Lipase (23-300) U/L Disposition Clinical Impression: Ascites, Elevated troponin Disposition: ADMITTED IP TO THIS HOSP Referrals: Ramos Murry MD [Primary Care Provider] - 1-2 days Time of Disposition: 16:01
[2016-09-01 15:20] LABS: Anisocytosis Slight; CH 38.1; CHCM 33.4; HCT 32.3 % (39.0-53.0); HDW 3.05; HGB 10.7 gm/dL (13.0-17.5); Large Platelets Flag Marked; MCH 37.9 pg (25.0-35.0); MCHC 33.1 g/dL (31.0-37.0); MCV 114.4 fL (80.0-100.0); Macrocytosis Marked; Mean Platelet Volume 12.2; RBC 2.82 m/uL (4.30-5.90); RDW 16.5 % (11.5-15.5); WBC 5.8 k/uL (3.8-10.6)
[2016-09-01 15:21] LABS: Calcium 8.7 mg/dL (8.4-10.2); Potassium 4.7 mmol/L (3.5-5.1); Total Bilirubin 7.2 mg/dL (0.2-1.3); Total Protein 7.4 g/dL (6.3-8.2)
--- NOTE | 2016-09-01 15:25 | XR ---
EXAMINATION TYPE: XR chest 2V DATE OF EXAM: 09/01/2016 3:21 PM HISTORY: abdominal pain. REFERENCE: Previous study dated 07/10/2016. FINDINGS: There has been a midline sternotomy. The heart is enlarged. There are calcified pleural plaques. There is a new infiltrate in the right midlung likely in the right middle lobe. No definite pleural f luid is seen. IMPRESSION: 1. NEW INFILTRATE IN THE RIGHT MIDDLE LOBE. 2. CALCIFIED PLEURAL PLAQUES. 3. CARDIOMEGALY.
[2016-09-01 15:40] LABS: INR 1.2 (<1.1); Partial Thromboplastin Time 25.6 sec (22.0-30.0)
[2016-09-01 15:45] LABS: Creatine Kinase MB 1.5 ng/mL (0.0-2.4)
[2016-09-01 15:47] LABS: Troponin I 0.14 ng/mL (0.000-0.034)
[2016-09-01 15:56] LABS: Add Differential Manual Differential
[2016-09-01 15:59] LABS: Large Platelets Present; Nucleated Red Blood Cells 0 /100 WBC (0-0); Total Cells Counted 100
[2016-09-01] MEDS ORDERED: SODIUM CHLORIDE 0.9% 1,000 ML IV ONE (16:03)
[2016-09-01] MEDS ORDERED: ONDANSETRON 4 MG/2 ML VIAL IVP PRN (16:04)
[2016-09-01 17:24] LABS: Glucose,Whole Blood 182 mg/dL (75-99)
[2016-09-01] MEDS: MORPHINE SULFATE 2 MG/ML SYRINGE IVP PRN (17:29)
[2016-09-01 17:36] LABS: Appearance,Urine Clear (Clear); Bilirubin,Urine 1+ (Negative); Glucose,Urine (UA) Negative (Negative); Ketones,Urine Negative (Negative); Leukocyte Esterase,Urine Negative (Negative); Nitrite,Urine Negative (Negative); PH, Urine 5.5 (5.0-8.0); Protein,Urine Negative (Negative); UA Billing (MACRO vs. MICRO) CHEM
[2016-09-01 20:39] LABS: Glucose,Whole Blood 214 mg/dL (75-99)
[2016-09-01 21:50] LABS: Creatine Kinase MB 1.9 ng/mL (0.0-2.4)
[2016-09-01 21:51] LABS: Troponin I 0.212 ng/mL (0.000-0.034)
[2016-09-01] MEDS ORDERED: NITROGLYCERIN SL TABS 0.4 MG TAB SUBLINGUAL PRN (22:27)
[2016-09-02 03:55] LABS: Creatine Kinase MB 6.6 ng/mL (0.0-2.4); Troponin I 1.22 ng/mL (0.000-0.034)
[2016-09-02 04:25] LABS: Calcium 8.2 mg/dL (8.4-10.2); Potassium 5.5 mmol/L (3.5-5.1)
[2016-09-02 04:29] LABS: Anisocytosis Slight; CH 37.5; CHCM 32.3; HCT 26.4 % (39.0-53.0); HDW 2.95; Hypochromasia Slight; Large Platelets Flag Marked; MCH 38.5 pg (25.0-35.0); MCV 116.7 fL (80.0-100.0); Macrocytosis Marked; Mean Platelet Volume 11.7; RBC 2.26 m/uL (4.30-5.90); RDW 16.4 % (11.5-15.5); WBC 12.1 k/uL (3.8-10.6); WBC (Perox) 12.81
[2016-09-02 04:32] LABS: HGB 8.7 gm/dL (13.0-17.5)
[2016-09-02 05:15] LABS: Add Differential Manual Differential
[2016-09-02 05:21] LABS: Band Neutrophils % 34.5 %; Large Platelets Present; Metamyelocytes % 0.5 %; Nucleated Red Blood Cells 0 /100 WBC (0-0); Total Cells Counted 200
[2016-09-02 05:36] LABS: Glucose,Whole Blood 234 mg/dL (75-99)
[2016-09-02] MEDS: PANTOPRAZOLE 40 MG TABLET PO SCH (06:25)
[2016-09-02] MEDS: INSULIN LISPRO (humaLOG) 300 UNIT/3 ML VIAL SQ SCH ×4 (06:45→20:35)
[2016-09-02] MEDS: metFORMIN 500 MG TAB PO SCH ×2 (06:45→18:39)
[2016-09-02] MEDS: POTASSIUM CHLORIDE ER 10 MEQ TAB.ER.PRT PO SCH ×2 (08:00→20:32)
[2016-09-02] MEDS ORDERED: FERROUS SULFATE 325 MG TAB PO SCH (09:00)
[2016-09-02] MEDS: MULTIVITAMINS, THERA 1 EACH TAB PO SCH (10:45)
[2016-09-02] MEDS: FUROSEMIDE 40 MG TAB PO SCH ×2 (10:45→20:32)
[2016-09-02] MEDS: ISOSORBIDE MONONITRATE ER 60 MG TAB.ER.24H PO SCH (10:45)
--- NOTE | 2016-09-02 11:11 | P.CONS ---
History of Present Illness - Reason for Consult Consult date: 09/02/16 Ascites Requesting physician: Lai Fontaine - History of Present Illness 80-year-old male well-known to the GI service with an extensive medical history including alcohol liver disease/cirrhosis, chronic thrombocytopenia, recurrent choledocholithiasis, portal hypertension and recurrent ascites. Admitted with chest pain elevated troponin consistent with acute UT. Consultation requested for recurrent ascites. Patient has had 2 large volume paracentesis is over the last month. 9 L removed 08/24/16. Admission platelet count 73,000 currently 51,000. White count 12. Hemoglobin 8.7. MCV 116. INR 1.2. BUN 34. Creatinine 1.8. Troponin 1.22. Total bilirubin 7.2 (3.5 on 08/06) AST 120. ALT 66. Alkaline phosphatase 434. ERCP July 13, 2016 removed biliary stent and extracted CBD stone. At that time his liver chemistries were very similar to his presenting chemistries on this admission. Review of Systems Constitutional: Denies fever, chills, sweats, weight gain, or loss. HEENT: Negative for migraines, blurred vision or loss, earaches, drainage, tinnitus, oral mucosal lesions, dysphagia, or odynophagia. Cardiac: CAD. Hyperlipidemia. Hypertension. UT. Aortic stenosis. CABG.. Respiratory: Suspicious exposure. COPD. Negative for shortness of breath, hemoptysis, cough, or sputum production. Gastrointestinal: See HPI for pertinent findings. Genitourinary: Negative for hematuria, urgency, frequency, polyuria, dysuria, or penile discharge. Musculoskeletal: Negative for muscle aches, swelling, arthritis, and arthralgias. Neurologic: Negative for stroke or TIA. Endocrine: Diabetes mellitus. Negative for thyroid problems. Skin: Skin carcinoma. Negative for rash or itching. 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, ascites, GIB- rectal bleed (pt vague as to cause or what was done) skin cancer, lower extremity edema, cardiac murmur, colon polyps liver stones Last Myocardial Infarction Date:: 03/21/2016 History of Any Multi-Drug Resistant Organisms: None Reported Past Surgical History: Cholecystectomy, Coronary Bypass/CABG, Heart Catheterization Additional Past Surgical History / Comment(s): CHRIS, heart cath 1999,heart cath 04-16-15 tx medically, katelynn corneal transplants, rt carotic endarterectomy, skin lesion, removed skin ca(forehead and rt forearm), temporal artery bx-neg, Biliary stones with ERCP. EGD/colonoscopy 05/2014 Past Anesthesia/Blood Transfusion Reactions: No Reported Reaction Additional Past Anesthesia/Blood Transfusion Reaction / Comm: per old hx transfusion 1999-no reaction Past Psychological History: No Psychological Hx Reported Additional Psychological History / Comment(s): but has a significant other for many years. Reformed tobacco and alcohol user. experience the [place] where he was through the [place] [facility] no illnesses while he was in the service. No travel since then. No animal exposures. No injection drug use Smoking Status: Former smoker Past Alcohol Use History: None Reported Additional Past Alcohol Use History / Comment(s): quit smoking 1985, quit drinking 2007, smoked up to 4 PPD and for a 25 Past Drug Use History: None Reported - Past Family History Father Family Medical History: Myocardial Infarction ([place]) Additional Family Medical History / Comment(s): Father at the age of 93 yrs. Mother Family Medical History: Myocardial Infarction ([place]) Additional Family Medical History / Comment(s): Mother had a [place] in her 70's. She lived into her 80's. Medications and Allergies Home Medications Medication Instructions Recorded Confirmed Type Clopidogrel [Plavix] 75 mg PO DIRECTED 05/07/14 09/01/16 History sitaGLIPtin PHOSPHATE [Januvia] 100 mg PO DAILY 05/07/14 09/01/16 History Ferrous Sulfate [Iron (65 MG 325 mg PO BID 04/02/15 09/01/16 History Elemental)] Multivitamins, Thera [Multivitamin 1 tab PO DAILY 11/05/15 09/01/16 History (formulary)] metFORMIN HCL [Metformin HCl ER] 500 mg PO BID 11/05/15 09/01/16 History Aspirin EC [Ecotrin Low Dose] 81 mg PO DIRECTED 12/29/15 09/01/16 History Furosemide 40 mg PO BID 03/19/16 09/01/16 History Isosorbide Mononitrate ER [Imdur] 60 mg PO DAILY 07/10/16 09/01/16 History Omeprazole [PriLOSEC] 20 mg PO DAILY 07/10/16 09/01/16 History Potassium Chloride ER [K-Dur 10] 10 meq PO BID 07/10/16 09/01/16 History Allergies Allergy/AdvReac Type Severity Reaction Status Date / Time ursodiol Allergy Unknown Verified 09/01/16 14:38 spironolactone AdvReac INCREASED Verified 09/01/16 14:38 [From Aldactone] ANGINA PAIN Physical Exam Vitals: Vital Signs Temp Pulse Pulse Pulse Resp BP BP 09/02/16 07:50 18 09/02/16 07:48 97.1 F L 101 H 101 H 18 107/54 09/02/16 03:39 97.5 F L 90 16 97/56 09/02/16 00:00 97.3 F L 97 16 97/57 09/01/16 20:00 100.2 F H 112 H 18 107/57 09/01/16 17:30 99 F 113 H 18 145/79 09/01/16 17:00 99 F 113 H 18 145/79 09/01/16 16:46 98.9 F 88 18 146/61 Pulse Ox 09/02/16 07:50 09/02/16 07:48 95 09/02/16 03:39 98 09/02/16 00:00 99 09/01/16 20:00 99 09/01/16 17:30 95 09/01/16 17:00 95 09/01/16 16:46 100 Intake and Output 09/01/16 09/02/16 09/02/16 22:59 06:59 14:59 Intake Total 850 Output Total 150 100 Balance -150 750 Intake: IV 450 Sodium Chloride 0.9% 1, 450 000 ml @ 75 mls/hr IV . [id number] ONE Rx#:[id number] Oral 400 Output: Urine 150 100 Other: Voiding Method Urinal Urinal Urinal Weight 73.7 kg 74.8 kg General appearance: The patient is alert, oriented, in no acute distress. Jaundice. HET: Head is normocephalic and atraumatic. Pupils are equal and reactive. Sclerae icterus. Oropharynx is clear without lesions. Neck: Supple without lymphadenopathy. Trachea midline. Heart: S1 S2. Regular rate and rhythm. Lungs: No crackles or wheezes are heard. Abdomen: Soft, gross distended with ascites with bowel sounds. No peritoneal signs. No palpable organomegaly or masses. Extremities: +2 bilateral lower extremity edema. Neurological: No focal deficits. Strength and sensation are grossly intact. Results CBC & Chem 7: 09/02/16 02:59 09/02/16 02:59 Labs: Abnormal Lab Results - Last 24 Hours (Table) 09/01/16 09/01/16 09/01/16 Range/Units 17:18 17:20 20:36 WBC (3.8-10.6) k/uL RBC (4.30-5.90) m/uL Hgb (13.0-17.5) gm/dL Hct (39.0-53.0) % MCV (80.0-100.0) fL MCH (25.0-35.0) pg RDW (11.5-15.5) % Plt Count (150-450) k/uL Neutrophils # (Manual) (1.3-7.7) k/uL Lymphocytes # (Manual) (1.0-4.8) k/uL Sodium (137-145) mmol/L Potassium (3.5-5.1) mmol/L Carbon Dioxide (22-30) mmol/L BUN (9-20) mg/dL Creatinine (0.66-1.25) mg/dL Glucose (74-99) mg/dL POC Glucose (mg/dL) 182 H 214 H (75-99) mg/dL Calcium (8.4-10.2) mg/dL Total Creatine Kinase (55-170) U/L CK-MB (CK-2) (0.0-2.4) ng/mL Troponin I (0.000-0.034) ng/mL Urine Bilirubin 1+ H (Negative) 09/01/16 09/02/16 09/02/16 Range/Units 21:04 02:59 02:59 WBC 12.1 H (3.8-10.6) k/uL RBC 2.26 L (4.30-5.90) m/uL Hgb 8.7 L D (13.0-17.5) gm/dL Hct 26.4 L (39.0-53.0) % MCV 116.7 H (80.0-100.0) fL MCH 38.5 H (25.0-35.0) pg RDW 16.4 H (11.5-15.5) % Plt Count 51 L (150-450) k/uL Neutrophils # (Manual) 11.1 H (1.3-7.7) k/uL Lymphocytes # (Manual) 0.5 L (1.0-4.8) k/uL Sodium (137-145) mmol/L Potassium (3.5-5.1) mmol/L Carbon Dioxide (22-30) mmol/L BUN (9-20) mg/dL Creatinine (0.66-1.25) mg/dL Glucose (74-99) mg/dL POC Glucose (mg/dL) (75-99) mg/dL Calcium (8.4-10.2) mg/dL Total Creatine Kinase 22 L 44 L (55-170) U/L CK-MB (CK-2) 6.6 H* (0.0-2.4) ng/mL Troponin I 0.212 H* 1.220 H* (0.000-0.034) ng/mL Urine Bilirubin (Negative) 09/02/16 09/02/16 Range/Units 02:59 05:34 WBC (3.8-10.6) k/uL RBC (4.30-5.90) m/uL Hgb (13.0-17.5) gm/dL Hct (39.0-53.0) % MCV (80.0-100.0) fL MCH (25.0-35.0) pg RDW (11.5-15.5) % Plt Count (150-450) k/uL Neutrophils # (Manual) (1.3-7.7) k/uL Lymphocytes # (Manual) (1.0-4.8) k/uL Sodium 131 L (137-145) mmol/L Potassium 5.5 H (3.5-5.1) mmol/L Carbon Dioxide 21 L (22-30) mmol/L BUN 34 H (9-20) mg/dL Creatinine 1.86 H (0.66-1.25) mg/dL Glucose 218 H (74-99) mg/dL POC Glucose (mg/dL) 234 H (75-99) mg/dL Calcium 8.2 L (8.4-10.2) mg/dL Total Creatine Kinase (55-170) U/L CK-MB (CK-2) (0.0-2.4) ng/mL Troponin I (0.000-0.034) ng/mL Urine Bilirubin (Negative) Assessment and Plan (1) Ascites Status: Acute (2) Chronic alcoholic liver disease Status: Acute (3) Elevated troponin Narrative/Plan: Possible acute UT Status: Acute (4) H/O ETOH abuse Status: Acute (5) Thrombocytopenia Status: Acute (6) Jaundice Status: Acute (7) Choledocholithiasis Status: Chronic Plan: 1. Therapeutic paracentesis today. Patient has decided to not proceed with aspirin Plavix therapy. 2. There is concern for recurrent choledocholithiasis with elevated bilirubin and chest pain. Elevated troponin possible acute UT. Will discuss with patient if he is agreeable to proceed with ERCP as there is an increased risk with elevated troponin on this admission with suspected acute UT. At this time patient is requesting supportive measures only and no CODE STATUS. Case was discussed with attending Dr. Fontaine he will discuss ERCP with patient; its possible patient may not want to proceed with ERCP. For now continue supportive measures. Cautious use of diuretics secondary to elevated creatinine. Overall condition is guarded. Thank you for this kind referral and the opportunity to participate in the care of your patient. This consultation was discussed with Dr. Jones. The impression and plan of care have been directed as dictated.
[2016-09-02 11:42] LABS: INR 1.4 (<1.1); Prothrombin Time 13.4 sec (9.0-12.0)
[2016-09-02 12:06] LABS: Glucose,Whole Blood 127 mg/dL (75-99)
--- NOTE | 2016-09-02 12:14 | CONS ---
DATE OF CONSULTATION: Yrn is an 80-year-old with history of coronary artery disease, status post CABG, aortic stenosis, stage IV cirrhosis of the liver with ascites who presented to the hospital with epigastric pain and cardiology had been consulted because of troponin elevation. The patient had prior recurrent hospitalizations and prior Troponin elevations. His tropes on this admission were at 0.1, 0.2 and 1.2. He did not have any further episodes of epigastric pain or chest pain. He has abdominal distention and needs paracentesis, but it is to be done once every week. His aspirin and Plavix are on hold for the paracentesis. The patient has opted not to undergo any further invasive procedures. Did not want to have anything done for the aortic valve either. At the time of my evaluation, he is comfortable at rest. Hemodynamically stable and wishes to go home. Medications at home included Plavix 75 mg q. daily, aspirin, Januvia, metformin, K-Dur, Prilosec, Nitrostat, Imdur, iron. Allergic to SPIRONOLACTONE and URSODIOL. Family history is negative for premature coronary artery disease. Social history is negative for smoking, EtOH abuse or drug abuse. REVIEW OF SYSTEMS: HEENT: Unremarkable. CARDIAC: As described above. RESPIRATORY: As described above. GI: Significant for ascites and cirrhosis of the liver. PSYCHOSOCIAL: Negative. ENDOCRINE: Negative. DERMATOLOGY: Negative. CONSTITUTIONAL: Negative. ONCOLOGICAL: Negative. Rest of the system review is not relevant. On exam, heart rate is 100 beats per minute, blood pressure is 107/50, respiratory rate is 18. Chest exam reveals good air entry bilaterally. I do not hear any crackles or rhonchi. Heart exam reveals first and second heart sounds. A grade 2/6 ejection systolic murmur. Abdomen is distended. Exam of the extremities reveals 1+ edema. Peripheral pulses are felt. Labs have been reviewed. Hemoglobin is 8.7. Troponins are elevated. Potassium is 5.5. BUN is 54. Creatinine is 1.8. ASSESSMENT: 1. Non-ST segment elevation myocardial infarction. 2. Cirrhosis liver with ascites. 3. Aortic stenosis. 4. Coronary artery disease, status post coronary artery bypass graft. PLAN: I agree with the current medical therapy. Per his wishes, he does not want to have any invasive procedures. I agree with stopping the dual antiplatelet therapy for paracentesis. It increases his risk of heart attacks, but we really do not have too many options. Continue the nitrates. Continue pain meds. I will see him back in my office over the next several months.
--- NOTE | 2016-09-02 15:37 | US ---
EXAMINATION TYPE: US paracentesis abd w/image DATE OF EXAM: 09/02/2016 3:28 PM CLINICAL HISTORY: Ascites The procedure was discussed with the patient. The risks, complications, benefits, and alternatives we re discussed and any questions were answered. Informed consent was obtained. The patient was placed s upine on the ultrasound table and prepped and draped in the usual sterile fashion. All elements of maximal barrier technique were utilized. Under ultrasound guidance, access into the right lower quadrant was obtained, via the paracentesis catheter system and direct ultrasound guidanc e. Approximately 8 liters of straw-colored fluid was removed. The patient was stable throughout the proc edure and remained stable upon discharge from Department of Radiology. Sample sent to pathology for a nalysis. IMPRESSION: Successful therapeutic and diagnostic paracentesis under ultrasound guidance.
--- NOTE | 2016-09-02 15:37 | HP ---
DATE OF ADMISSION: 09/01/2016 PRESENTING COMPLAINT: Epigastric pain. HISTORY OF PRESENTING COMPLAINT: This is a pleasant 80-year-old patient with rather extensive medical history. Patient's chronic stable medical conditions include alcohol-induced cirrhosis, has congestive heart failure EF 40%, COPD, asbestos lung disease, severe secondary pulmonary hypertension, duodenal telangiectasia. Patient presented having increasing epigastric pain, going up the chest, lasting for well over 2 to 3 hours, felt tired and rundown. Pain did not radiate to the neck around. Patient also has been having chills at home and sometimes he feels his stomach is burning. Patient normally has paracentesis every 2 weeks; is followed by Dr. Gabriela Diamond from GI. Patient's CODE STATUS is DNR and does not want to be too aggressive. Patient on this admission has ruled in for an acute CA, but because of the overall problems, no further intervention is to be done. Patient has been taking nitro at home, sometimes with relief. Patient's appetite has been very poor. The patient is able to walk to the mall every day. But appetite has been going downhill, hardly eating for some time. REVIEW OF SYSTEMS: CONSTITUTIONAL: Weak, tired, loss of appetite, chills. HEENT: Decreased hearing. RESPIRATORY: Some shortness of breath. CARDIOVASCULAR: Epigastric lower chest pain. GASTROINTESTINAL: Abdominal distention. GENITOURINARY: None. MUSCULOSKELETAL: None. DERMATOLOGICAL: None. HEMATOLOGICAL: None. LYMPHATIC: None. PSYCHIATRY: Anxious. NEUROLOGICAL: None. PAST MEDICAL HISTORY: Cirrhosis alcohol-induced, coronary artery bypass in 1999 for coronary artery disease, diabetes mellitus type 2, previous alcoholism, congestive heart failure EF 40%, COPD, hypercholesterolemia, pancytopenia, moderate mitral stenosis, tricuspid regurgitation, severe pulmonary hypertension, skin cancer, colon polyps. PAST SURGICAL HISTORY: Coronary artery bypass, bilateral corneal transplant, right carotid endarterectomy, skin CA removal, ERCP for biliary stone removal. SOCIAL HISTORY: Patient stopped drinking in 2007. Patient smoked 4 packs a day for 25 years; stopped in 1985 for history of myocardial infarction. HOME MEDICATIONS: 1. Januvia 100 mg a day. 2. Metformin 500 mg b.i.d. 3. Potassium 10 mEq b.i.d. 4. Prilosec for 20 mg p.o. daily. 5. Nitrostat 0.4 sublingual q.5 p.r.n. 6. Multivitamin 1 tablet p.o. daily. 7. Imdur ER 60 mg p.o. daily. 8. Lasix 40 mg p.o. b.i.d. 9. Iron 325 p.o. b.i.d. 10. Plavix 75 mg p.o. daily. 11. Aspirin 81 mg p.o. daily. It may be noted patient is not taking aspirin and Plavix for 3 days. Allergies to URSODIOL, ALDACTONE. On examination vital signs on presentation: Temperature 100.2, pulse ox 112, respirations 18, blood pressure 107/57, pulse ox 99% on 4 L. GENERAL APPEARANCE: Average build, lying in bed, somewhat disheveled, tired-appearing. EYES: Pupils equal. Conjunctival icterus, present. HEENT: External appearance of nose and oral cavity dry mucous membrane. NECK: JVD not raised. Mass not palpable. Respiratory effort normal. LUNGS: Slightly decreased breath sounds. CARDIOVASCULAR: First and second sound. Edema, present. ABDOMEN: Distended, warm, slight tenderness. Liver and spleen not palpable. LYMPHATIC: No lymph node palpable in neck or axillae. PSYCHIATRY: Alert and oriented x3. Mood and affect slightly anxious-appearing. NEUROLOGICAL: Pupils equal. Cranial nerves grossly intact. Power and sensation decreased distally. INVESTIGATIONS: White count 12.1, hemoglobin 8.7, platelets 51, potassium 5.5, BUN 34, creatinine 1.86. Troponin 0.212, 1.220. EKG poor RV progression in the anterior leads. ASSESSMENT: 1. Acute non-Q-wave myocardial infarction in a patient with known coronary artery disease. 2. Suspect spontaneous bacterial peritonitis with a white count, fever, chills and rigors at home. 3. Coronary artery disease with prior history of coronary artery bypass. 4. 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 5. Chronic congestive heart failure from systolic dysfunction; ejection fraction 40%, from underlying coronary artery disease. 6. Chronic obstructive pulmonary disease in an ex-smoker. 7. Severe secondary pulmonary hypertension from severe chronic obstructive pulmonary disease. 8. Chronic kidney disease stage III from hypertensive nephrosclerosis. 9. Asbestos lung disease. 10. Duodenal telangiectasia, chronic. 11. Hyperkalemia in the setting of renal failure. 12. Macrocytic anemia, likely from underlying cirrhosis. 13. Thrombocytopenia from liver disease. 14. Hyponatremia likely hyposmolar in the setting of cirrhosis. 15. CODE STATUS: DO NOT RESUSCITATE. PLAN: Overall prognosis rather guarded. Care was discussed in length with the patient, and son. Will start the patient on ceftriaxone. Patient will have a therapeutic and diagnostic tap today and peritoneal fluid will be sent off for Gram stain and culture. From a coronary standpoint, given multiple comorbidities, patient will be managed medically, GI was consulted and await the further input. Patient's CODE STATUS is DNR. Does not want any heroic measures.
[2016-09-02 15:54] LABS: RBC, Body Fluid 203 /uL
[2016-09-02] MEDS: ALBUMIN HUMAN 25% 50 ML in EMPTY BAG 1 BAG IVPB SCH ×3 (16:06→16:43)
[2016-09-02 17:23] LABS: Glucose,Whole Blood 116 mg/dL (75-99)
[2016-09-02 20:36] LABS: Glucose,Whole Blood 133 mg/dL (75-99)
[2016-09-03 05:44] LABS: Glucose,Whole Blood 137 mg/dL (75-99)
[2016-09-03] MEDS: INSULIN LISPRO (humaLOG) 300 UNIT/3 ML VIAL SQ SCH ×4 (06:42→21:30)
[2016-09-03] MEDS: PANTOPRAZOLE 40 MG TABLET PO SCH (06:42)
[2016-09-03 07:11] LABS: Calcium 8.2 mg/dL (8.4-10.2); Potassium 4.7 mmol/L (3.5-5.1)
[2016-09-03] MEDS: metFORMIN 500 MG TAB PO SCH ×2 (09:33→18:19)
[2016-09-03] MEDS: MULTIVITAMINS, THERA 1 EACH TAB PO SCH (10:10)
[2016-09-03] MEDS: POTASSIUM CHLORIDE ER 10 MEQ TAB.ER.PRT PO SCH ×2 (10:10→21:32)
[2016-09-03 10:14] LABS: Large Platelets Flag Marked; Mean Platelet Volume 13.4
[2016-09-03] MEDS: FUROSEMIDE 40 MG TAB PO SCH ×2 (10:29→21:28)
--- NOTE | 2016-09-03 10:36 | P.PN ---
Subjective Principal diagnosis: Chest and abdominal discomfort This is a pleasant 80-year-old gentleman who follows regularly with Dr. Hill in the office. He has a known history of prior bypass surgery, aortic stenosis, stage IV cirrhosis of the liver with associated ascites, diabetes, hypertension, hyperlipidemia. He presented to the hospital with symptoms of epigastric and abdominal discomfort, troponins came back to be abnormal suggestive of possible non-Q-wave myocardial infarction. Patient does have borderline abnormal troponins on a regular basis. He was seen in consultation yesterday by Dr. Dimaond and the recommendation was made to maximize medical therapy. The patient underwent a paracentesis yesterday where 8 L of straw- colored fluid was removed. Patient was seen and examined this morning, denies any chest pain, no abdominal pain, breathing is stable. Blood pressure 102/50 with a heart rate in the 90s. Sodium 130, potassium 4.7, BUN 41, creatinine 1.9. Aspirin and Plavix were placed on hold for paracentesis, we will resume this. Objective - Vital Signs Vital signs: Vital Signs Temp 98.3 F 09/03/16 07:39 Pulse 92 09/03/16 07:39 Resp 20 09/03/16 09:06 BP 102/52 09/03/16 07:39 Pulse Ox 96 09/03/16 04:00 Intake & Output 09/02/16 09/03/16 09/03/16 18:59 06:59 18:59 Intake Total 500 0 Output Total 800 0 Balance -300 0 Weight 74.8 kg 67.2 kg Intake: IV 0 Sodium Chloride 0.9% 1, 0 000 ml @ 75 mls/hr IV . [id number] Rx#:[id number] Oral 500 Output: Urine 800 0 Other: Voiding Method Urinal Urinal Urinal # Voids 0 0 # Bowel Movements 0 - Exam PHYSICAL EXAMINATION: HEENT: Head is atraumatic, normocephalic. Pupils equal, round. Neck is supple. There is no elevated jugular venous pressure. HEART EXAMINATION: Heart S1-S2 systolic ejection murmur is heard. CHEST EXAMINATION: Lungs are clear to auscultation and precussion. No chest wall tenderness is noted on palpation or with deep breathing. ABDOMEN: Soft, nontender. Bowel sounds are heard. No organomegaly noted. EXTREMITIES: 2+ peripheral pulses with trace evidence of peripheral edema and no calf tenderness noted. NEUROLOGIC patient is awake, alert and oriented -3. . - Labs CBC & Chem 7: 09/02/16 02:59 09/03/16 06:31 Labs: Abnormal Lab Results - Last 24 Hours (Table) 09/02/16 09/02/16 09/02/16 Range/Units 11:19 12:04 17:20 PT 13.4 H (9.0-12.0) sec Sodium (137-145) mmol/L Carbon Dioxide (22-30) mmol/L BUN (9-20) mg/dL Creatinine (0.66-1.25) mg/dL Glucose (74-99) mg/dL POC Glucose (mg/dL) 127 H 116 H (75-99) mg/dL Calcium (8.4-10.2) mg/dL 09/02/16 09/03/16 09/03/16 Range/Units 20:33 05:42 06:31 PT (9.0-12.0) sec Sodium 130 L (137-145) mmol/L Carbon Dioxide 21 L (22-30) mmol/L BUN 41 H (9-20) mg/dL Creatinine 1.99 H (0.66-1.25) mg/dL Glucose 141 H (74-99) mg/dL POC Glucose (mg/dL) 133 H 137 H (75-99) mg/dL Calcium 8.2 L (8.4-10.2) mg/dL Microbiology - Last 24 Hours (Table) 09/02/16 14:15 Gram Stain - Preliminary Peritoneal Fluid Body Fluid Culture - Preliminary 09/02/16 14:15 Anaerobic Culture - Preliminary Ascites Fluid Assessment and Plan (1) Aortic stenosis Status: Acute (2) Hx of CABG Status: Acute (3) Diabetes Status: Acute (4) Hyperlipemia Status: Acute (5) Ascites Status: Acute (6) Chronic alcoholic liver disease Status: Acute (7) Elevated troponin Status: Acute (8) Abdominal pain Status: Acute (9) Symptomatic anemia Status: Acute (10) Thrombocytopenia Status: Acute Plan: Cardiology's perspective, we'll continue current medical therapy. We will resume the patient's aspirin and Plavix. Continue nitrates. We'll follow him with you now on an as-needed basis only, please don't hesitate to call with any questions. A follow-up appointment will be made for the patient with Dr. Diamond in the office within the next couple of months. DNP note has been reviewed, I agree with a documented findings and plan of care. Patient was seen and examined.
[2016-09-03] MEDS ORDERED: CLOPIDOGREL 75 MG TAB PO SCH (10:45)
[2016-09-03] MEDS: ISOSORBIDE MONONITRATE ER 60 MG TAB.ER.24H PO SCH (11:49)
[2016-09-03] MEDS ORDERED: INDOMETHACIN 50MG SUPPOSITORY RECTAL ONE (12:00)
[2016-09-03] MEDS ORDERED: LEVOFLOXACIN 500MG-D5W PMX 500 MG in DEXTROSE/WATER 1 100ML.BAG IVPB ONE (12:00)
[2016-09-03] MEDS: SODIUM CHLORIDE 0.9% 1,000 ML IV SCH (12:25)
[2016-09-03 12:33] LABS: Glucose,Whole Blood 127 mg/dL (75-99)
[2016-09-03] MEDS: ASPIRIN 81 MG CHEW PO SCH (15:21)
[2016-09-03 16:46] LABS: Calcium 8.1 mg/dL (8.4-10.2); Potassium 4.9 mmol/L (3.5-5.1)
[2016-09-03 16:50] LABS: Glucose,Whole Blood 150 mg/dL (75-99)
--- NOTE | 2016-09-03 19:48 | PN ---
DATE OF SERVICE: 09/03/2016 PRESENTING COMPLAINT: Tired. INTERVAL HISTORY: This patient with multiple medical problems presented with acute non-Q-wave myocardial infarction. ERCP was canceled per Dr. Jones, as patient's overall condition was not felt to be a good. Patient had 8 L of ascitic fluid removed, feels better. is at the bedside. Did eat very little of food, tired. Patient empirically was put on ceftriaxone for a possible SBP. Review of systems done for constitutional, cardiovascular, GI, pulmonary; relevant findings as above. Current medications are reviewed that include IV ceftriaxone. On examination, temperature 99.4, pulse of 113, respirations 19, blood pressure 87/52, pulse ox 97% on room air. GENERAL APPEARANCE: Lying in the bed, tired-appearing. EYES: Pupils equal. Conjunctival icterus. NECK: JVD not raised. Mass not palpable. RESPIRATORY: Effort normal. LUNGS: Decreased breath sounds. CARDIOVASCULAR: First and second sounds normal. Edema present. ABDOMEN: Less distended, soft. Liver and spleen not palpable. PSYCHIATRY: Alert and oriented x3. Mood and affect anxious-appearing. INVESTIGATIONS: Pro time 13.4. Ascitic fluid: Nucleated cells 65.8, WBC 68. ASSESSMENT: 1. Acute non-Q-wave myocardial infarction, in a patient with known coronary artery disease. 2. Suspect spontaneous bacterial peritonitis with fever, chills and rigors at home, awaiting cultures. 3. Coronary artery disease with prior history of coronary artery bypass. 4. Alcoholic liver cirrhosis stage 3 or 4. 5. Chronic congestive heart failure from systolic dysfunction; ejection fraction 40%, underlying coronary artery disease. 6. Chronic obstructive pulmonary disease in an ex-smoker. 7. Severe secondary pulmonary hypertension from severe chronic obstructive pulmonary disease. 8. Chronic kidney disease stage 3 from hypertensive nephrosclerosis. 9. Asbestos lung disease. 10. Duodenal telangiectasia, chronic. 11. Hyperkalemia in the setting of renal failure. 12. Macrocytic anemia, likely from underlying cirrhosis. 13. Thrombocytopenia from liver disease. 14. Hyponatremia, likely hypoosmolar in the setting of cirrhosis. 15. CODE STATUS: DO NOT RESUSCITATE. PLAN: Care was discussed with the patient and . Wait another 24 hours, especially in the setting of acute VA and await cultures to come back. Ceftriaxone is to continue. Overall prognosis is guarded. Repeat labs.
[2016-09-03 20:34] LABS: Glucose,Whole Blood 161 mg/dL (75-99)
[2016-09-04 06:34] LABS: Glucose,Whole Blood 120 mg/dL (75-99)
[2016-09-04 06:44] LABS: Potassium 4.8 mmol/L (3.5-5.1)
[2016-09-04] MEDS: PANTOPRAZOLE 40 MG TABLET PO SCH (06:49)
[2016-09-04] MEDS: metFORMIN 500 MG TAB PO SCH ×2 (06:49→16:49)
[2016-09-04] MEDS: INSULIN LISPRO (humaLOG) 300 UNIT/3 ML VIAL SQ SCH ×4 (06:50→21:55)
[2016-09-04 07:59] LABS: Anisocytosis Slight; CH 37.8; CHCM 32.8; HDW 3.03; HGB 9.3 gm/dL (13.0-17.5); Large Platelets Flag Marked; MCH 38.5 pg (25.0-35.0); MCHC 33.2 g/dL (31.0-37.0); Macrocytosis Marked; Mean Platelet Volume 14.1; RBC 2.41 m/uL (4.30-5.90); RDW 16.8 % (11.5-15.5); WBC 13.7 k/uL (3.8-10.6); WBC (Perox) 15.42
[2016-09-04] MEDS: ISOSORBIDE MONONITRATE ER 60 MG TAB.ER.24H PO SCH (08:42)
[2016-09-04] MEDS: FUROSEMIDE 40 MG TAB PO SCH ×2 (08:42→20:56)
[2016-09-04 08:51] LABS: Add Differential Manual Differential
[2016-09-04 09:06] LABS: Nucleated Red Blood Cells 0 /100 WBC (0-0); Total Cells Counted 200; Toxic Granulation Present; Toxic Vacuolation Present
[2016-09-04 09:07] LABS: Large Platelets Present
[2016-09-04 09:09] LABS: Dohle Bodies Present
--- NOTE | 2016-09-04 09:58 | P.PN ---
Subjective Principal diagnosis: Chest pain recurrent ascites end-stage liver disease jaundice 80-year-old male admitted with chest pain; acute non-Q-wave WA, jaundice and recurrent ascites. History of end-stage alcohol liver disease cirrhosis. ERCP postponed yesterday secondary to low blood pressures. Blood pressures are better today. Objective - Vital Signs Vital signs: Vital Signs Temp 97.0 F L 09/04/16 08:16 Pulse 81 09/04/16 08:16 Resp 20 09/04/16 08:16 BP 94/55 09/04/16 08:16 Pulse Ox 97 09/04/16 04:00 Intake & Output 09/03/16 09/04/16 09/04/16 18:59 06:59 18:59 Intake Total 100 300 Balance 100 300 Weight 66.7 kg Intake: Oral 100 300 Other: Voiding Method Urinal Toilet Urinal # Voids 0 1 # Bowel Movements 0 - Exam General appearance: The patient is alert, oriented, in no acute distress. Jaundice. HET: Head is normocephalic and atraumatic. Pupils are equal and reactive. Sclerae icterus. Oropharynx is clear without lesions. Neck: Supple without lymphadenopathy. Trachea midline. Heart: S1 S2. Regular rate and rhythm. Lungs: No crackles or wheezes are heard. Abdomen: Soft, nontender, distended with mild ascites with bowel sounds. No peritoneal signs. No palpable organomegaly or masses. Extremities: +2 bilateral lower extremity edema Neurological: No focal deficits. Strength and sensation are grossly intact. - Labs CBC & Chem 7: 09/04/16 06:08 09/04/16 06:08 Labs: Abnormal Lab Results - Last 24 Hours (Table) 09/03/16 09/03/16 09/03/16 Range/Units 06:31 12:31 16:12 WBC (3.8-10.6) k/uL RBC (4.30-5.90) m/uL Hgb (13.0-17.5) gm/dL Hct (39.0-53.0) % MCV (80.0-100.0) fL MCH (25.0-35.0) pg RDW (11.5-15.5) % Plt Count 52 L (150-450) k/uL Neutrophils # (Manual) (1.3-7.7) k/uL Lymphocytes # (Manual) (1.0-4.8) k/uL Sodium 127 L (137-145) mmol/L Chloride 97 L (98-107) mmol/L Carbon Dioxide 18 L (22-30) mmol/L BUN 47 H (9-20) mg/dL Creatinine 2.04 H (0.66-1.25) mg/dL Glucose 154 H (74-99) mg/dL POC Glucose (mg/dL) 127 H (75-99) mg/dL Calcium 8.1 L (8.4-10.2) mg/dL 09/03/16 09/03/16 09/04/16 Range/Units 16:48 20:09 06:08 WBC (3.8-10.6) k/uL RBC (4.30-5.90) m/uL Hgb (13.0-17.5) gm/dL Hct (39.0-53.0) % MCV (80.0-100.0) fL MCH (25.0-35.0) pg RDW (11.5-15.5) % Plt Count (150-450) k/uL Neutrophils # (Manual) (1.3-7.7) k/uL Lymphocytes # (Manual) (1.0-4.8) k/uL Sodium 125 L (137-145) mmol/L Chloride 96 L (98-107) mmol/L Carbon Dioxide 18 L (22-30) mmol/L BUN 52 H (9-20) mg/dL Creatinine 2.50 H (0.66-1.25) mg/dL Glucose 124 H (74-99) mg/dL POC Glucose (mg/dL) 150 H 161 H (75-99) mg/dL Calcium 8.0 L (8.4-10.2) mg/dL 09/04/16 09/04/16 Range/Units 06:08 06:18 WBC 13.7 H (3.8-10.6) k/uL RBC 2.41 L (4.30-5.90) m/uL Hgb 9.3 L (13.0-17.5) gm/dL Hct 28.0 L (39.0-53.0) % MCV 116.0 H (80.0-100.0) fL MCH 38.5 H (25.0-35.0) pg RDW 16.8 H (11.5-15.5) % Plt Count 54 L (150-450) k/uL Neutrophils # (Manual) 13.1 H (1.3-7.7) k/uL Lymphocytes # (Manual) 0.4 L (1.0-4.8) k/uL Sodium (137-145) mmol/L Chloride (98-107) mmol/L Carbon Dioxide (22-30) mmol/L BUN (9-20) mg/dL Creatinine (0.66-1.25) mg/dL Glucose (74-99) mg/dL POC Glucose (mg/dL) 120 H (75-99) mg/dL Calcium (8.4-10.2) mg/dL Microbiology - Last 24 Hours (Table) 09/02/16 14:15 Gram Stain - Preliminary Peritoneal Fluid Body Fluid Culture - Preliminary Gram Neg Bacilli Assessment and Plan (1) Ascites Narrative/Plan: Status post paracentesis; ascitic fluid clear with no evidence of SBP. Status: Acute (2) Chronic alcoholic liver disease Status: Acute (3) Elevated troponin Narrative/Plan: Acute non-Q-wave WA Status: Acute (4) H/O ETOH abuse Status: Acute (5) Thrombocytopenia Status: Acute (6) Jaundice Status: Acute (7) Choledocholithiasis Status: Chronic Plan: 1. ERCP today possible placement of biliary stent. Patient has decided to not proceed with aspirin Plavix therapy secondary for need of weekly paracentesis. Interventional radiologist recommends no aspirin Plavix for 7 days prior to paracentesis. Patient states he wants to be comfortable moving forward and would like to be discharged later today. Patient understands he is high risk for ERCP secondary to acute WA. He is presently a NO CODE STATUS. The director cardiology has discussed the risks, benefits and alternative therapies for the above-mentioned procedure and for both sedation/analgesia as well as necessary blood product administration, if indicated, as they pertain to this patient. The patient has indicated understanding and acceptance of the risks and procedures discussed. Assessment and plan a care discussed with Dr. Diamond
[2016-09-04] MEDS: MULTIVITAMINS, THERA 1 EACH TAB PO SCH (09:59)
[2016-09-04] MEDS: POTASSIUM CHLORIDE ER 10 MEQ TAB.ER.PRT PO SCH ×2 (10:00→20:56)
[2016-09-04] MEDS: ASPIRIN 81 MG CHEW PO SCH (10:55)
[2016-09-04] MEDS ORDERED: LEVOFLOXACIN 500MG-D5W PMX 500 MG in DEXTROSE/WATER 1 100ML.BAG IVPB ONE (11:30)
[2016-09-04] MEDS ORDERED: INDOMETHACIN 50MG SUPPOSITORY RECTAL ONE (11:30)
[2016-09-04 11:46] VITALS: BMI 23.7
[2016-09-04 11:48] LABS: Glucose,Whole Blood 123 mg/dL (75-99)
[2016-09-04] MEDS: SODIUM CHLORIDE 0.9% 1,000 ML IV SCH (11:49)
[2016-09-04] MEDS ORDERED: ETOMIDATE 2 MG/ML 10 ML VIAL ONE (13:57)
[2016-09-04] MEDS ORDERED: MIDAZOLAM 2 MG/2 ML VIAL ONE (13:57)
[2016-09-04] MEDS ORDERED: KETAMINE 10 MG/ML 20 ML VIAL ONE (13:57)
[2016-09-04] MEDS ORDERED: LACTATED RINGERS 800 ML IV ONE (13:58)
--- NOTE | 2016-09-04 14:43 | P.PCN ---
Date of Procedure: 09/04/16 Procedure(s) Performed: Brief history: Patient is a 80 year-old pleasant white male scheduled for an ERCP as part of evaluation of abdominal pain and elevated serum transaminases and jaundice for the last few days duration. Patient has history of multiple CBD stones in the past for which she underwent multiple ERCPs, the last one was done in June 2016 and multiple CBD stones were removed. His bilirubin decreased from 7-3 g/dL falling the procedure. He does have history of cirrhosis of the liver with gradual decompensation. However his admitted to the hospital with was in ascites and severe epigastric pain with elevated bilirubin up to 7.2. Because of the clinical suspicion for recurrent CBD stones he scheduled for a repeat ERCP with a possible CBD stent placement today Procedure performed: ERCP with CBD stone extraction and 7-Citizen [place] CBD stent placement Preoperative diagnoses: Elevated bilirubin and history of CBD stones IV sedation per anesthesia: Procedure: After informed consent was obtained from the patient and after the risks benefits and complications including bleeding perforation and pancreatitis explained in detail the patient was brought into the endoscopy unit. The patient was placed in prone position and IV conscious sedation was administered by anesthesia under continuous monitoring. The Olympus side-viewing duodenoscope was then inserted into the mouth and esophagus intubated without any difficulty. The scope was gradually advanced into the stomach and duodenum. The major papilla was identified without any difficulty. There was evidence of previous bili recent enterotomy noted. The CBD was cannulated with a taper-tip catheter and upon injection of the dye there were multiple small faint defects noted in the CBD. It appeared dilated measuring 1.5 cm in diameter. At this time 11.2 mm balloon was passed over the guidewire into the proximal CBD gently inflated and withdrawn and multiple stones were seen exiting the ampulla. There was a lot of thick material and thick sludge seen exiting the ampulla. At this time an occlusion cholangiogram was performed and no more filling defects were identified. Because of recurrent CBD stone formation I decided to place a 7-Citizen [place] 5 cm CBD stent into the proximal CBD over a guidewire without any difficulty and the patient tolerated the procedure well. The pancreatic duct was not intentionally cannulated during the entire procedure. Impression: Dilated CBD with multiple filling defects status post CBD stone extraction and 7 -Citizen [place] 5 cm pigtail CBD stent placement as described above Pancreatic duct intentionally not cannulated. Recommendations: The findings of this examination were discussed with the patient as well as a family. He will be started on soft diet today and repeat labs in the morning.
[2016-09-04] MEDS ORDERED: IOHEXOL 300 MG/ML 50 ML BOTTLE MISCELLANE ONE (14:45)
--- NOTE | 2016-09-04 14:55 | FL ---
EXAMINATION TYPE: FL ERCP DATE OF EXAM: 09/04/2016 2:50 PM CLINICAL HISTORY: Cirrhosis. TECHNIQUE: Fluoroscopy. COMPARISON: None. FINDINGS: Fluoroscopic guidance was provided during ERCP procedure performed by Dr. Diamond. A total of 3 minutes 28 seconds of fluoroscopic time was utilized during the procedure and 2 spot images was acquired. Images acquired show advancement of guidewire into biliary system. Please refer to procedur e note for further details as I was not present nor performed procedure. IMPRESSION: As Above.
[2016-09-04] MEDS: MORPHINE SULFATE 2 MG/ML SYRINGE IVP PRN ×2 (16:00→22:29)
[2016-09-04 16:45] LABS: Glucose,Whole Blood 103 mg/dL (75-99)
[2016-09-04 20:40] LABS: Glucose,Whole Blood 119 mg/dL (75-99)
[2016-09-05 06:56] LABS: Glucose,Whole Blood 111 mg/dL (75-99)
[2016-09-05] MEDS: INSULIN LISPRO (humaLOG) 300 UNIT/3 ML VIAL SQ SCH ×2 (06:58→12:15)
[2016-09-05] MEDS: metFORMIN 500 MG TAB PO SCH (07:05)
[2016-09-05] MEDS: PANTOPRAZOLE 40 MG TABLET PO SCH (07:05)
[2016-09-05] MEDS: MORPHINE SULFATE 2 MG/ML SYRINGE IVP PRN ×2 (08:02→15:11)
[2016-09-05] MEDS: FUROSEMIDE 40 MG TAB PO SCH (08:08)
[2016-09-05] MEDS: MULTIVITAMINS, THERA 1 EACH TAB PO SCH (08:08)
[2016-09-05] MEDS: ISOSORBIDE MONONITRATE ER 60 MG TAB.ER.24H PO SCH (08:08)
[2016-09-05] MEDS: POTASSIUM CHLORIDE ER 10 MEQ TAB.ER.PRT PO SCH (08:08)
[2016-09-05 08:14] VITALS: TEMP 96.8
--- NOTE | 2016-09-05 11:12 | PN ---
DATE OF SERVICE: 09/04/2016 PRESENTING COMPLAINT: Tired. INTERVAL HISTORY: This patient was seen by me this afternoon presented with acute non-Q myocardial infarction also patient had 8 L of ascitic fluid tapped. Patient today underwent ERCP and some stones were retracted. Following that, patient was having some chest pain, blood pressure is running low about 80 systolic. Patient's significant other is at bedside. Patient and have been talking about hospice except for paracentesis. I did talk to them, and told them that at this point nothing much we can do except to make sure that he is comfortable. Make sure we give him medicines for his pain. The patient understands the overall poor prognosis, and overall situation and the patient and are keen to proceed with hospice to go home. Review of systems done for constitutional, cardiovascular, GI, pulmonary; relevant findings as above. Current medications are reviewed. On examination, temperature 95.5, pulse 89, respiration 25, blood pressure 81/48, pulse ox 95% on 2 liters. GENERAL APPEARANCE: Lying in bed, tired appearing. EYES: Pupils equal. Conjunctivae icterus. NECK: JVD not raised. Mass not palpable. RESPIRATORY: Effort normal. LUNGS: Diminished breath sounds. CARDIOVASCULAR: First and second sounds normal. Some edema present. ABDOMEN: Soft, slightly distended. Liver and spleen not palpable. PSYCHIATRY: Alert and oriented x3. Mood and affect very anxious appearing. INVESTIGATIONS: White count 13.7, hemoglobin 9.3, platelets 54, sodium 125, potassium 4.8. BUN 52, creatinine 2.50. ASSESSMENT: 1. Acute non-Q myocardial infarction in a patient with known coronary artery disease. 2. SDP ruled out as per peritoneal fluid. 3. Coronary artery disease with prior history of coronary artery bypass. 4. Post myocardial infarction, angina possibly precipitated by hypotension. 5. Alcoholic liver alcoholic cirrhosis stage III or IV. 6. Chronic congestive heart failure from systolic dysfunction; ejection fraction 40%, underlying coronary artery disease. 7. Chronic obstructive pulmonary disease in an ex-smoker. 8. Severe secondary pulmonary hypertension from severe chronic obstructive pulmonary disease. 9. Chronic kidney disease, stage III from hypertensive nephrosclerosis. 10. Asbestos lung disease. 11. ( ) telangiectasia, chronic. 12. Macrocytic anemia, likely from underlying cirrhosis. 13. Thrombocytopenia from liver disease. 14. Hyponatremia, hypoosmolar in the setting of cirrhosis. 15. CODE STATUS: DO NOT RESUSCITATE. PLAN: Care was discussed with the patient and in detail, will try to keep him comfortable. Per their wishes, hospice [facility] is being called in. No heroic measures to be done. Care was discussed in detail at the bedside. Also nurse was informed. Prognosis poor.
[2016-09-05] MEDS: SODIUM CHLORIDE 0.9% 1,000 ML IV SCH (11:36)
[2016-09-05 11:50] VITALS: BP 99/52; PULSE 56; RESP 20
[2016-09-05 12:04] LABS: Glucose,Whole Blood 104 mg/dL (75-99)
--- NOTE | 2016-09-05 12:33 | PN ---
DATE OF SERVICE: 09/05/2016 Requesting physician: Dr. Jimenez ). HISTORY: The patient is an 80-year-old pleasant, white male who was admitted to the hospital with worsening ascites and epigastric pain. He underwent large volume paracentesis and yesterday underwent an ERCP for recurrent CBD stones. ERCP showed multiple filling defects in the common bile duct and multiple stones ( ) following which a CBD stent was placed. The patient is doing much better this morning. He denies any abdominal pain. Reports no nausea or vomiting. He wants to go home today. The patient does have an history of advanced alcoholic cirrhosis of the liver with gradual decompensation lately. On physical examination, he appears comfortable in no apparent distress. Vitals as are stable. Blood pressure is 99/46, pulse rate 83, and temperature afebrile. HEENT unremarkable. Conjunctivae pink. Sclerae slightly icteric. Oral cavity, no lesions. NECK: No JVD or lymph node enlargement. Chest was clear to auscultation. HEART: Regular rate and rhythm. ABDOMEN: Soft. It was distended. Some free fluid noted in the abdomen. EXTREMITIES: No pedal edema. SKIN: No rashes. NEUROLOGICAL: Alert and oriented x3. No focal deficits. No labs available at the time of this dictation. IMPRESSION: 1. Advanced alcoholic liver disease with gradual decompensation recently complicated with recurrent ascites and mild renal failure status post large volume paracentesis 3 days ago. 2. Recommend common bile duct stones status post ERCP with common bile duct stone extraction yesterday and CBD stent placement. He is feeling much better today. 3. Ascites. The patient is scheduled to have large volume paracentesis on a weekly basis. RECOMMENDATIONS: 1. Advance diet as tolerated. 2. He can be discharged home today. The patient wants to continue with palliative paracentesis and wants to consider hospice care at the present time for advanced liver disease. 3. At this time we will sign off. Please call us if needed. Thank you for this consultation.
--- NOTE | 2016-09-06 13:17 | DS ---
DATE OF ADMISSION: 09/01/2016 DATE OF DISCHARGE: 09/05/2016 FINAL DIAGNOSES: 1. Acute non-Q-wave myocardial infarction, in a patient with known coronary artery disease, sabrina inhibitor and beta amanda was held because of low blood pressure. 2. Coronary artery disease with prior history of coronary artery bypass. 3. Post myocardial infarction angina precipitated by hypotension. 4. Alcoholic liver cirrhosis stage III or IV. 5. Chronic congestive heart failure from systolic dysfunction; ejection fraction 40%, from underlying coronary artery disease. 6. Chronic obstructive pulmonary disease in an ex-smoker. 7. Severe secondary pulmonary hypertension from chronic obstructive pulmonary disease. 8. Chronic kidney stage III from hypertensive nephrosclerosis. 9. Asbestos lung disease. 10. Duodenal telangiectasia, chronic. 11. Macrocytic anemia, likely from underlying cirrhosis. 12. Thrombocytopenia from liver disease. 13. Hypernatremia, hypoosmolar in the setting of cirrhosis. 14. CODE STATUS: DNR. HOSPITAL COURSE: This patient with cirrhosis presented with more jaundice. Some abdominal discomfort. Did have an acute myocardial infarction, but because of low blood pressure and overall poor condition was managed conservatively. Patient was also suspected again to have CBD stones hence ERCP was carried out and multiple stones were extracted. CBD stent was placed. Patient decided to go home with hospice, which is appropriate and have palliative paracentesis depending how he does. Today his and son at the bedside. [facility] home care is being involved to try to get the patient home. The patient now is pretty much bed bound because being extremely weak. Prognosis poor. On examination, jaundice. ABDOMEN: Slightly distended. LUNGS: Decreased breath sounds. Patient is able answer some simple questions. CONSULTATION: Dr. Gabriela Diamond from GI. Dr. Roc Diamond/URSULA Kearney from cardiology. PROCEDURE PERFORMED: ERCP. DISCHARGE MEDICATIONS: 1. Plavix 75 mg a day. 2. Januvia 100 mg a day. 3. Aspirin 81 mg a day. 4. Lasix 40 mg b.i.d. 5. Nitrostat 0.4 sublingual q.5 p.r.n. 6. Imdur ER 60 mg a day. 7. Prilosec 20 mg a day. 8. Potassium 10 mEq b.i.d. 9. Ativan 1 mg p.o. q.4 p.r.n. for anxiety. 10. Roxanol 20 mg/mL 5 mg q.4 p.r.n. for pain. 11. Scopolamine patch p.r.n. for secretions. DISPOSITION: Home with home hospice. Follow-up with Dr. Murry p.r.n. Outpatient palliative paracentesis to be determined on clinical grounds. Care was discussed with the patient and and son, questions answered. Discharge planning more than 35 minutes.
--- NOTE | 2016-09-28 09:27 | HP ---
DATE OF ADMISSION: 09/01/2016 ADDENDUM: FAMILY HISTORY: Mother had a heart attack in her 70's.
== END 2016-09-05 15:38 | disposition hospice, home (50) | DRG 432 ==
LOC: EC 14:09 → 6SEL 16:03
PROVIDERS: ADMIT Hospitalist; ATTEND Hospitalist
PROC: 0W9G3ZX Drainage of Peritoneal Cavity, Percutaneous Approach, Diagnostic (ICD-10-PCS; 2016-09-02)
PROC: 0FC98ZZ Extirpation of Matter from Common Bile Duct, Via Natural or Artificial Opening Endoscopic (ICD-10-PCS; principal; 2016-09-04 08:00)
PROC: BF121ZZ Fluoroscopy of Gallbladder using Low Osmolar Contrast (ICD-10-PCS; 2016-09-04 08:00)
DX: K70.31 Alcoholic cirrhosis of liver with ascites (principal); I21.4 Non-ST elevation (NSTEMI) myocardial infarction; K65.2 Spontaneous bacterial peritonitis; K76.6 Portal hypertension; I50.22 Chronic systolic (congestive) heart failure; E87.1 Hypo-osmolality and hyponatremia; I23.7 Postinfarction angina; I13.0 Hypertensive heart and chronic kidney disease with heart failure and stage 1 through stage 4 chronic kidney disease, or unspecified chronic kidney disease; I95.9 Hypotension, unspecified; E11.22 Type 2 diabetes mellitus with diabetic chronic kidney disease; K72.90 Hepatic failure, unspecified without coma; I08.3 Combined rheumatic disorders of mitral, aortic and tricuspid valves; K80.50 Calculus of bile duct without cholangitis or cholecystitis without obstruction; D53.9 Nutritional anemia, unspecified; N18.3 Chronic kidney disease, stage 3 (moderate); D69.59 Other secondary thrombocytopenia; I27.2 Other secondary pulmonary hypertension; E87.5 Hyperkalemia; E78.00 Pure hypercholesterolemia, unspecified; E78.5 Hyperlipidemia, unspecified; I25.119 Atherosclerotic heart disease of native coronary artery with unspecified angina pectoris; I25.2 Old myocardial infarction; J44.9 Chronic obstructive pulmonary disease, unspecified; J61 Pneumoconiosis due to asbestos and other mineral fibers; F10.20 Alcohol dependence, uncomplicated; M19.90 Unspecified osteoarthritis, unspecified site; K92.89 Other specified diseases of the digestive system; Z66 Do not resuscitate; Z79.02 Long term (current) use of antithrombotics/antiplatelets; Z79.82 Long term (current) use of aspirin; Z79.84 Long term (current) use of oral hypoglycemic drugs; Z79.899 Other long term (current) drug therapy; Z85.828 Personal history of other malignant neoplasm of skin; Z87.891 Personal history of nicotine dependence; Z95.1 Presence of aortocoronary bypass graft; Z82.49 Family history of ischemic heart disease and other diseases of the circulatory system
CPT/HCPCS: 36415; 43260; 43274; 43277; 49083; 71020; 74330; 80048; 80053; 81003; 82150; 82550; 82553; 82945; 83036; 83615; 83690; 84157; 84484; 85025; 85049; 85610; 85730; 87070; 87075; 87077; 87186; 87205; 89050; 93005; 96374; 96375; 99285